=== PATIENT | male | born 1945 | race Caucasian/White ===

== ENCOUNTER 2017-03-22 17:14 | Observation (INO) | payer MEDICARE ==
[~2017-03-22] VITALS: Ht 177.8 cm; Wt 105.5 kg
[2017-03-22] VITALS (7 sets, daily range): BP systolic 123–158; BP diastolic 70–99; PULSE 62–98; RESP 16–20; TEMP 97.7–98; O2SAT 95–96
[~2017-03-22 17:14] MED LIST: AMLO5TAB96 PO; BUPR150T3 PO; COUM4TAB7 PO; DOFE250 PO; ENAL20TA81 PO; KLOR20TA6 PO; METO100T PO; SPIR25 PO; TAMS0.4C67 PO; VASO10TA8 PO
[2017-03-22] MEDS ORDERED: SODIUM CHLOR 0.9% 1000 ML INJ 1,000 ML IV SCH (17:49)
--- NOTE | 2017-03-22 17:59 | PD ---
HPI Chief Complaint: Syncope/Near-Syncope Time Seen by Provider: 17:54 Travel History International Travel<30 days: Yes ([place]) Contact w/Intl Traveler<30days: [place] Traveled to: [place] Traveled to known affect area: No History of Present Illness HPI 71-year-old male that presents to the ED for evaluation of syncope. Patient states that today around 12:30 patient had a syncopal episode. Per patient she denies actually lose consciousness but he felt numbness and tingling on his arms and legs and he almost fell but he was able to catch himself. Per patient she's had an episode of atrial fibrillation the past he was told by his doctor to here has this issue to take a blood thinner. Per patient he was also recently prescribed Bactrim to help with a urinary tract infection which she's had in the past. Per patient he should take Cipro for them but this one became more severe and she called yesterday his doctor who prescribed him Bactrim. He did not get any urine cultures. Per patient his doctor is in [place]. Per patient his symptoms continued and his had to walk and otherwise she felt too dizzy to walk. Per patient he feels very weak. He denies any chest pain. No palpitations. No abdominal pain. Per patient she does have a lot of polyuria and dysuria. He states that this been going for a couple days now. Per patient the dizziness he describes more as a spinning sensation now but initially was more like a passing out Feeling. Patient is not able to ambulate without assistance which is new for him. He states that he follows with Dr. Dhaliwal for his cardiology. He denies any pain at this time. No blurry vision or double vision. No neck pain. No fevers chills or sweats. No sick contacts. Patient did recently when on a cruise to [place]. 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,) High Cholesterol: No Chemotherapy: No Chest Pain: No Congestive Heart Failure: No COPD: No Diabetes: No Endocrine: No GERD: No Genitourinary: No (BLADDER REMOVED) Hiatal Hernia: No Hypertension: Yes Immune Disorder: No Kidney Stones: No Musculoskeletal: No Neurologic: No Psychiatric: No Reproductive: No Respiratory: No Radiation Therapy: No Renal Failure: No Sleep Apnea: Yes Thyroid Disease: No Ulcer: No Past Surgical History Abdominal Surgery: Yes (colon ca, diverticulitis) Cardiac Surgery: Yes (open heart (Aorta resection) 09/2010) Ear Surgery: Yes (left ear) Endocrine Surgery: No Eye Surgery: No Genitourinary Surgery: No Gynecologic Surgery: No Oral Surgery: Yes (tunsila) Thoracic Surgery: No Tonsillectomy: Yes Other Surgery: Yes (bowel resection) Social History Alcohol Use: No Tobacco Use: No Substance Use: No Allergies-Medications (Allergen,Severity, Reaction): Coded Allergies: No Known Allergies (Verified , 03/22/17) Reported Meds & Prescriptions Reported Meds & Active Scripts Active Reported Folic Acid 400 Mcg Tab 400 Mcg PO DAILY Zinc (Zinc Gluconate) 50 Mg Tab 50 Mg PO EVERY OTHER DAY B Complex W/ C 1 Tab Tab 1 Tab PO BID Vitamin D-3 (Cholecalciferol) 2,000 Unit Tab 2,000 Units PO QID C-1000 (Ascorbic Acid) 1,000 Mg Tab 1,000 Mg PO DAILY Coq10 (Coenzyme Q10 (Ubidecarenone)) 200 Mg Cap 200 Mg PO BID Niacin Flush Free (Inositol Niacinate) 590 Mg Cap 590 Mg PO BID Glucosamine (Glucosamine Sulfate) 500 Mg Cap Unknown Dose PO AC DINNER Dhea 25 (Prasterone (DHEA)) 25 Mg Cap 25 Mg PO BID Vitamin B-12 (Cyanocobalamin) 500 Mcg Tab 500 Mcg PO BID Calcium (Calcium Carbonate) 600 Mg Tab 600 Mg PO DAILY Spiriva Respimat Inh (Tiotropium Inh) 2.5 Mcg/Act Aero 2 Puff INH DAILY 2.5 mcg = 1 inhalation Flonase Nasal Rainbow (Fluticasone Nasal Rainbow) 50 Mcg/Act Rainbow 1 Spr EACH NARE DAILY Tikosyn (Dofetilide) 500 Mcg Cap 500 Mcg PO BID For Creatinine Clearance >60 mL/min K-Tab (Potassium Chloride) 20 Meq Tab 20 Meq PO BID Metoprolol Tartrate 100 Mg Tab 100 Mg PO BID Tamsulosin (Tamsulosin HCl) 0.4 Mg Cap 0.4 Mg PO DAILY Wellbutrin Xl 24 HR (Bupropion HCl) 150 Mg Tab 150 Mg PO DAILY Eliquis (Apixaban) 5 Mg Tab 5 Mg PO DAILY Bactrim DS (Sulfamethoxazole-Trimethoprim) 800-160 Mg Tab 1 Tab PO BID Review of Systems Except as stated in HPI: all other systems reviewed are Neg Physical Exam Narrative GENERAL: SKIN: Warm and dry. HEAD: Atraumatic. Normocephalic. EYES: Pupils equal and round 4 mm reactive to light and accommodation. No scleral icterus. No injection or drainage. ENT: No nasal bleeding or discharge. Mucous membranes pink and moist. Tongue is midline. No uvula deviation. NECK: Trachea midline. No JVD. CARDIOVASCULAR: Regular rate and rhythm. No murmurs, S3, S4. RESPIRATORY: No accessory muscle use. Clear to auscultation. Breath sounds equal bilaterally. GASTROINTESTINAL: Abdomen soft, non-tender, nondistended. Hepatic and splenic margins not palpable. MUSCULOSKELETAL: Extremities without clubbing, cyanosis, or edema. No obvious deformities. Full range of motion of the upper and lower extremities bilaterally. 2+ pulses bilaterally. NEUROLOGICAL: Awake and alert. No obvious cranial nerve deficits. Motor grossly within normal limits. Five out of 5 muscle strength in the arms and legs. Normal speech. PSYCHIATRIC: Appropriate mood and affect; insight and judgment normal. Data Data Last Documented VS Vital Signs Date Time Temp Pulse Resp B/P Pulse Ox O2 Delivery O2 Flow Rate FiO2 03/22/17 19:12 74 16 138/85 96 03/22/17 18:12 Room Air 03/22/17 17:15 97.7 Orders Electrocardiogram (03/22/17 17:33) Complete Blood Count With Diff (03/22/17 17:33) Comprehensive Metabolic Panel (03/22/17 17:33) Ckmb (Isoenzyme) Profile (03/22/17 17:33) Troponin I (03/22/17 17:33) Prothrombin Time / Inr (Pt) (03/22/17 17:33) Act Partial Throm Time (Ptt) (03/22/17 17:33) Urinalysis - C+S If Indicated (03/22/17 17:33) Magnesium (Mg) (03/22/17 17:33) Thyroid Stimulating Hormone (03/22/17 17:33) Chest, Single Ap (03/22/17 17:33) Ct Brain W/O Iv Contrast(Rout) (03/22/17 17:33) Iv Access Insert/Monitor (03/22/17 17:33) Ecg Monitoring (03/22/17 17:33) Oximetry (03/22/17 17:33) Orthostatic Vital Signs (03/22/17 17:33) Sodium Chlor 0.9% 1000 Ml Inj (Ns 1000 M (03/22/17 17:49) Admit Order (Ed Use Only) (03/22/17 19:29) Labs Laboratory Tests Test 03/22/17 18:05 White Blood Count 8.4 TH/MM3 Red Blood Count 4.93 MIL/MM3 Hemoglobin 15.4 GM/DL Hematocrit 44.7 % Mean Corpuscular Volume 90.8 FL Mean Corpuscular Hemoglobin 31.2 PG Mean Corpuscular Hemoglobin 34.4 % Concent Red Cell Distribution Width 14.0 % Platelet Count 135 TH/MM3 Mean Platelet Volume 9.7 FL Neutrophils (%) (Auto) 69.5 % Lymphocytes (%) (Auto) 16.8 % Monocytes (%) (Auto) 11.8 % Eosinophils (%) (Auto) 1.4 % Basophils (%) (Auto) 0.5 % Neutrophils # (Auto) 5.9 TH/MM3 Lymphocytes # (Auto) 1.4 TH/MM3 Monocytes # (Auto) 1.0 TH/MM3 Eosinophils # (Auto) 0.1 TH/MM3 Basophils # (Auto) 0.0 TH/MM3 CBC Comment DIFF FINAL Differential Comment Prothrombin Time 11.9 SEC Prothromb Time International 1.1 RATIO Ratio Activated Partial 29.3 SEC Thromboplast Time Urine Color YELLOW Urine Turbidity CLEAR Urine pH 5.0 Urine Specific [place] 1.017 Urine Protein NEG mg/dL Urine Glucose (UA) NEG mg/dL Urine Ketones NEG mg/dL Urine Occult Blood NEG Urine Nitrite NEG Urine Bilirubin NEG Urine Urobilinogen LESS THAN 2.0 MG/DL Urine Leukocyte Esterase NEG Urine RBC LESS THAN 1 /hpf Urine WBC 1 /hpf Urine Mucus FEW /lpf Microscopic Urinalysis Comment CULT NOT INDICATED Sodium Level 138 MEQ/L Potassium Level 4.2 MEQ/L Chloride Level 105 MEQ/L Carbon Dioxide Level 25.2 MEQ/L Anion Gap 8 MEQ/L Blood Urea Nitrogen 21 MG/DL Creatinine 1.01 MG/DL Estimat Glomerular Filtration 73 ML/MIN Rate Random Glucose 81 MG/DL Calcium Level 8.9 MG/DL Magnesium Level 2.0 MG/DL Total Bilirubin 0.8 MG/DL Aspartate Amino Transf 19 U/L (AST/SGOT) Alanine Aminotransferase 33 U/L (ALT/SGPT) Alkaline Phosphatase 107 U/L Total Creatine Kinase 94 U/L Troponin I LESS THAN 0.02 NG/ML Total Protein 7.2 GM/DL Albumin 3.8 GM/DL Thyroid Stimulating Hormone 1.870 uIU/ML 3rd Gen [facility] Medical Decision Making Medical Screen Exam Complete: Yes Emergency Medical Condition: Yes Medical Record Reviewed: Yes Interpretation(s) CBC & BMP Diagram 03/22/17 18:[address] 03/22/173 Signed Impressions: Service Date/Time: Wednesday, March 22, 2017 18:24 - CONCLUSION: Normal examination for a patient of this age. Sergio Mike MD Chest X-Ray 03/22/171732 Signed Impressions: Service Date/Time: Wednesday, March 22, 2017 17:52 - CONCLUSION: 1. No acute findings. Median sternotomy. Tortuous aorta. Sergio Mike MD EKG shows atrial fibrillation but no RVR. no sign of ischemia or arrhythmia read by me and attending. troponin and CKMB negative LFTS WNL UA negative Differential Diagnosis Syncope versus presyncope versus UTI versus orthostatic hypotension versus CVA versus ACS versus electrolyte abnormality versus sepsis Narrative Course 71-year-old male that presents to the ED for evaluation of syncope. Patient was properly examined and was found to have signs and symptoms which appear to be consistent with syncope. Unclear etiology. Patient does have risk factors for multiple disease. I do recommend labs and imaging. Patient was given IV fluids. Labs and imaging showed no sign of acute disease. For the most part look good. Orthostatics were within normal limits. Patient still symptomatic. Because of this and the recommend admission for syncope workup. Patient is in agreement with this plan. Case was discussed with Dr. Aleman who agrees to admission. Procedures EKG Prior to Arrival: No Diagnosis Primary Impression: Syncope Qualified Code: R55 - Syncope, unspecified syncope type Admitting Information Admitting Physician Requests: Rafa Sosa March 22, 2017 17:59
[2017-03-22] MEDS ORDERED: BUPR150XL PO (18:04)
[2017-03-22] MEDS ORDERED: TAMS0.4C4 PO (18:04)
[2017-03-22] MEDS ORDERED: APIX5TAB PO (18:04)
[2017-03-22] MEDS ORDERED: BACT800T5 PO (18:04)
[2017-03-22] MEDS ORDERED: TIOT12.9 INH (18:07)
[2017-03-22] MEDS ORDERED: METO100T PO (18:07)
[2017-03-22] MEDS ORDERED: DOFE500 PO (18:07)
[2017-03-22] MEDS ORDERED: FLUT1SPR5 EACH NARE (18:07)
[2017-03-22] MEDS ORDERED: POTA1TAB4 PO (18:07)
[2017-03-22] MEDS ORDERED: [UNRECOGNIZED DRUG - CODE] PO (18:16)
[2017-03-22] MEDS ORDERED: B CO1TAB2 PO (18:16)
[2017-03-22] MEDS ORDERED: [UNRECOGNIZED DRUG - CODE] PO (18:16)
[2017-03-22] MEDS ORDERED: PRAS1CAP PO (18:16)
[2017-03-22] MEDS ORDERED: CALC600T25 PO (18:16)
[2017-03-22] MEDS ORDERED: VITA500T4 PO (18:16)
[2017-03-22] MEDS ORDERED: CHOL1TAB42 PO (18:16)
[2017-03-22] MEDS ORDERED: CHEL50TA PO (18:16)
[2017-03-22] MEDS ORDERED: COQ1200C PO (18:16)
[2017-03-22] MEDS ORDERED: GLUC500C5 PO (18:16)
[2017-03-22] MEDS ORDERED: FOLI400T PO (18:16)
[2017-03-22 18:28] LABS: AUTOMATED NEUTROPHIL # 5.9 TH/MM3 (1.8-7.7); BASOPHIL % 0.5 % (0.0-2.0); EOSINOPHIL # 0.1 TH/MM3 (0-0.4); EOSINOPHIL % 1.4 % (0.0-4.0); HEMATOCRIT 44.7 % (39.0-51.0); HEMO FLAGS DIFF FINAL; LYMPH % 16.8 % (9.0-44.0); LYMPHOCYTE # 1.4 TH/MM3 (1.0-4.8); MEAN CELL VOLUME 90.8 FL (80.0-100.0); MEAN CORPUSCULAR HEMOGLOBIN 31.2 PG (27.0-34.0); MEAN CORPUSCULAR HGB CONC 34.4 % (32.0-36.0); MONO % 11.8 % (0.0-8.0); NEUT % 69.5 % (16.0-70.0); PLATELET COUNT 135 TH/MM3 (150-450); RED BLOOD COUNT 4.93 MIL/MM3 (4.50-5.90); WHITE BLOOD COUNT 8.4 TH/MM3 (4.0-11.0)
[2017-03-22 18:39] LABS: APTT (PATIENT) 29.3 SEC (24.3-30.1); INTERNATIONAL NORMALIZED RATIO 1.1 RATIO; PROTHROMBIN TIME - PATIENT 11.9 SEC (9.8-11.6)
--- NOTE | 2017-03-22 18:52 | RADRPT ---
EXAM DATE/TIME: 03/22/2017 18:24 [facility] COMPARISON: No previous studies available for comparison. INDICATIONS : Trauma; fall. RADIATION DOSE: 56.35 CTDIvol (mGy) MEDICAL HISTORY : Carcinoma, colon. Aneurysm, abdominal. SURGICAL HISTORY : None. ENCOUNTER: Initial ACUITY: 1 day PAIN SCALE: 3/10 LOCATION: cranial TECHNIQUE: Multiple contiguous axial images were obtained of the head. Using automated exposure control and adj ustment of the mA and/or kV according to patient size, radiation dose was kept as low as reasonably a chievable to obtain optimal diagnostic quality images. FINDINGS: CEREBRUM: The ventricles are normal for age. No evidence of midline shift, mass lesion, hemorrhage or acute in farction. No extra-axial fluid collections are seen. POSTERIOR FOSSA: The cerebellum and brainstem are intact. The 4th ventricle is midline. The cerebellopontine angle i s unremarkable. EXTRACRANIAL: The visualized portion of the orbits is intact. SKULL: The calvaria is intact. No evidence of skull fracture. CONCLUSION: Normal examination for a patient of this age. Sergio Mike MD on March 22, 2017 at 18:48 Board Certified Radiologist. This report was verified electronically.
[2017-03-22 18:57] LABS: ANION GAP 8 MEQ/L (5-15); AST (GOT) 19 U/L (15-37); BICARBONATE 25.2 MEQ/L (21.0-32.0); BLOOD UREA NITROGEN 21 MG/DL (7-18); CHLORIDE 105 MEQ/L (98-107); GLOMERULAR FILTRATION RATE 73 ML/MIN (>89); POTASSIUM 4.2 MEQ/L (3.5-5.1); SODIUM (NA) 138 MEQ/L (136-145)
[2017-03-22 19:00] LABS: BLOOD, URINE NEG (NEG); COMMENT (UR) CULT NOT INDICATED; CULTURE IF INDICATED CULT NOT INDICATED; GLUCOSE,URINE NEG (NEG); KETONE, URINE NEG (NEG); MUCUS URINE FEW /lpf (OCC); NITRITE,URINE NEG (NEG); URINE COLOR YELLOW (YELLW/STRAW)
--- NOTE | 2017-03-22 19:00 | RADRPT ---
EXAM DATE/TIME: 03/22/2017 17:52 [facility] COMPARISON: No previous studies available for comparison. INDICATIONS : Syncopal episode and dizziness. MEDICAL HISTORY : None. SURGICAL HISTORY : Cardiac ablations. ENCOUNTER: Initial ACUITY: 1 day PAIN SCORE: 0/10 LOCATION: chest FINDINGS: A single view of the chest demonstrates the lungs to be symmetrically aerated without evidence of mas s, infiltrate or effusion. Postoperative median sternotomy. Tortuous aorta. CONCLUSION: 1. No acute findings. Median sternotomy. Tortuous aorta. Sergio Mike MD on March 22, 2017 at 18:57 Board Certified Radiologist. This report was verified electronically.
[2017-03-22 19:07] LABS: ALKALINE PHOSPHATASE 107 U/L (45-117); ALT (GPT) 33 U/L (12-78); CREATINE KINASE 94 U/L (39-308); TOTAL BILIRUBIN ADULT 0.8 MG/DL (0.2-1.0)
[2017-03-22] MEDS ORDERED: MORPHINE SULFATE 4 MG/ML INJ IV PRN (19:45)
[2017-03-22] MEDS ORDERED: SODIUM CHLORIDE 0.9% FLUSH 10 ML FLUSH IV FLUSH PRN (19:45)
[2017-03-22] MEDS ORDERED: ONDANSETRON HCL 4 MG/2 ML VIAL IVP PRN (19:45)
[2017-03-22] MEDS ORDERED: ACETAMINOPHEN/HYDROcodone 325 MG/5 MG TAB PO PRN (19:45)
[2017-03-22] MEDS ORDERED: BISACODYL 10 MG SUPP RECTAL PRN (19:45)
[2017-03-22] MEDS ORDERED: ACETAMINOPHEN 325 MG TAB PO PRN (19:45)
--- NOTE | 2017-03-22 19:53 | HHI.HP ---
[facility] Service [facility] Primary Care Physician Juvencio Akins MD Admission Diagnosis syncope Diagnoses: (1) Syncope Diagnosis: Principal (2) A-fib Diagnosis: Principal (3) Thrombocytopenia Diagnosis: Principal (4) COPD (chronic obstructive pulmonary disease) Diagnosis: Principal (5) HTN (hypertension) Diagnosis: Principal Travel History International Travel<30 Days: Yes ([place]) Contact w/Intl Traveler <30 Da: [place] Country Traveled to: [place] Traveled to Known Affected Are: No History of Present Illness This is a 71-year-old male with a PMH of Colon CA, A. fib on Eliquis, COPD and HTN who presented to the ER after syncopal event earlier today. Reports sudden onset of dizziness and lightheadedness earlier today with numbness and tingling of both arms and legs. Denies fever, chills, nausea, vomiting or diarrhea. Notes recently diagnosed w/ UTI and currently on antibiotics-initially started on Cipro and then switched to Bactrim. On arrival, BP 158/99, HR 98, O2 sat 96 % on RA, Afebrile. CBC unremarkable except for platelets 135, previously 119 on 07/27/11. Chemistry essentially unremarkable except for GFR 73. Troponin negative. INR 1.1. UA negative. CT Head normal. CXR with no acute findings. Patient follows with Dr. Akins w/ Cardiology as outpatient. Review of Systems Except as stated in HPI: all other systems reviewed are Neg ROS: 14 point review of systems otherwise negative. Past Family Social History Past Medical History PMH: Colon CA, A. fib on Eliquis, COPD and HTN Past Surgical History PAST SURGICAL HISTORY: Aortic Aneurysm Repair, Tonsillectomy, Bowel Resection Allergies: Coded Allergies: No Known Allergies (Verified , 03/22/17) Family History PAST FAMILY HISTORY: Reviewed. No h/o DM or CAD Social History PAST SOCIAL HISTORY: Negative for alcohol, tobacco or drugs. Physical Exam Vital Signs Vital Signs Date Time Temp Pulse Resp B/P Pulse Ox O2 Delivery O2 Flow Rate FiO2 03/22/17 19:12 74 16 138/85 96 5/6/17 18:14 78 138/85 77 132/78 138/83 03/22/17 18:12 97 Room Air 03/22/17 18:12 85 16 138/98 03/22/17 17:15 97.7 98 20 158/99 96 Room Air Physical Exam PE: GENERAL: Pleasant elderly male in no acute distress. HEENT: PERRLA, EOMI. No scleral icterus or conjunctival pallor. No lid lag or facial droop. CARDIOVASCULAR: Irregularly irregular, in A. fib. No obvious murmurs to auscultation. No chest tenderness to palpation. RESPIRATORY: No obvious rhonchi or wheezing. Clear to auscultation. Breath sounds equal bilaterally. GASTROINTESTINAL: Abdomen soft, non-tender, nondistended. BS normal. MUSCULOSKELETAL: Extremities without clubbing, cyanosis, or edema. No obvious deformities. NEUROLOGICAL: Awake, alert and oriented x4. No focal neurologic deficits. Moving both upper and lower extremities spontaneously. Laboratory Laboratory Tests Test 03/22/17 18:05 White Blood Count 8.4 Red Blood Count 4.93 Hemoglobin 15.4 Hematocrit 44.7 Mean Corpuscular Volume 90.8 Mean Corpuscular Hemoglobin 31.2 Mean Corpuscular Hemoglobin 34.4 Concent Red Cell Distribution Width 14.0 Platelet Count 135 Mean Platelet Volume 9.7 Neutrophils (%) (Auto) 69.5 Lymphocytes (%) (Auto) 16.8 Monocytes (%) (Auto) 11.8 Eosinophils (%) (Auto) 1.4 Basophils (%) (Auto) 0.5 Neutrophils # (Auto) 5.9 Lymphocytes # (Auto) 1.4 Monocytes # (Auto) 1.0 Eosinophils # (Auto) 0.1 Basophils # (Auto) 0.0 CBC Comment DIFF FINAL Differential Comment Prothrombin Time 11.9 Prothromb Time International 1.1 Ratio Activated Partial 29.3 Thromboplast Time Urine Color YELLOW Urine Turbidity CLEAR Urine pH 5.0 Urine Specific [place] 1.017 Urine Protein NEG Urine Glucose (UA) NEG Urine Ketones NEG Urine Occult Blood NEG Urine Nitrite NEG Urine Bilirubin NEG Urine Urobilinogen LESS THAN 2.0 Urine Leukocyte Esterase NEG Urine RBC LESS THAN 1 Urine WBC 1 Urine Mucus FEW Microscopic Urinalysis Comment CULT NOT INDICATED Sodium Level 138 Potassium Level 4.2 Chloride Level 105 Carbon Dioxide Level 25.2 Anion Gap 8 Blood Urea Nitrogen 21 Creatinine 1.01 Estimat Glomerular Filtration 73 Rate Random Glucose 81 Calcium Level 8.9 Magnesium Level 2.0 Total Bilirubin 0.8 Aspartate Amino Transf 19 (AST/SGOT) Alanine Aminotransferase 33 (ALT/SGPT) Alkaline Phosphatase 107 Total Creatine Kinase 94 Troponin I LESS THAN 0.02 Total Protein 7.2 Albumin 3.8 Thyroid Stimulating Hormone 1.870 3rd Gen Result Diagram: 03/22/17180403/22/171804 Assessment and Plan Problem List: (1) Syncope ICD Code: R55 Status: Acute (2) A-fib ICD Code: I48.91 Status: Acute (3) Thrombocytopenia ICD Code: D69.6 Status: Acute (4) COPD (chronic obstructive pulmonary disease) ICD Code: J44.9 Status: Acute (5) HTN (hypertension) ICD Code: I10 Status: Acute Assessment and Plan A/P: 1. Syncope: c/o sudden onset dizziness/lightheadedness followed by syncope. CT Head w/ no acute findings, CXR negative, images reviewed by me. Initial trop negative, EKG w/ no acute ischemia. Admit for Observation, telemetry, check serial cardiac enzymes to eval for underlying ischemia, check Echo, resume home medications, IVF for hydration. Consult Dr. Akins w/ whom he follows as an outpatient. 2. A-fib: Chronic. Controlled. Resume home Eliquis, Tikosyn and Metoprolol. 3. Thrombocytopenia: Chronic. Platelets 135, previously 119 on 07/27/11. No active bleeding, will monitor, repeat labs in am. 4. COPD: Chronic Respiratory Failure. Stable. Resume home Spiriva/DuoNeb 5. DVT Prophylaxis: On Eliquis 6. Social work for d/c planning as needed. 7. Case discussed w/ ER physician at length Problem Qualifiers (1) Syncope: Qualified Code: R55 - Syncope, unspecified syncope type Nakita Aleman MD March 22, 2017 19:53
[2017-03-22] MEDS ORDERED: DOFETILIDE 500 MCG CAP PO SCH (21:00)
[2017-03-22] MEDS: DOFETILIDE 250 MCG CAP PO SCH (21:32)
[2017-03-22] MEDS: METOPROLOL TARTRATE 100 MG TAB PO SCH (21:33)
[2017-03-22] MEDS: TIOTROPIUM BROMIDE 18 MCG INH INH SCH (21:33)
[2017-03-22] MEDS: SODIUM CHLORIDE 0.9% FLUSH 10 ML FLUSH IV FLUSH SCH (21:33)
--- NOTE | 2017-03-22 21:37 | EKG ---
Date Performed: 03/22/2017 Time Performed: 17:59:10 PTAGE: 71 years EKG: ATRIAL FIBRILLATION POSSIBLE ANTERIOR MYOCARDIAL INFARCTION INFERIOR MYOCARDIAL INFARCTION ABNORMAL ECG NO PREVIOUS TRACING DOCTOR: Juvencio Akins Interpretating Date/Time 03/22/2017 21:35:34
[2017-03-22] MEDS: SODIUM CHLOR 0.9% 1000 ML INJ 1,000 ML IV SCH (21:40)
[2017-03-23] VITALS (13 sets, daily range): BP systolic 121–138; BP diastolic 69–91; PULSE 52–84; RESP 14–20; TEMP 97.8–98.8; O2SAT 95–98
[2017-03-23 06:04] LABS: ANION GAP 8 MEQ/L (5-15); AST (GOT) 14 U/L (15-37); BICARBONATE 25.5 MEQ/L (21.0-32.0); BLOOD UREA NITROGEN 16 MG/DL (7-18); CHLORIDE 107 MEQ/L (98-107); GLOMERULAR FILTRATION RATE 97 ML/MIN (>89); POTASSIUM 3.6 MEQ/L (3.5-5.1); SODIUM (NA) 140 MEQ/L (136-145)
[2017-03-23 06:08] LABS: ALKALINE PHOSPHATASE 69 U/L (45-117); ALT (GPT) 26 U/L (12-78); TOTAL BILIRUBIN ADULT 1.3 MG/DL (0.2-1.0)
[2017-03-23 06:11] LABS: AUTOMATED NEUTROPHIL # 4.5 TH/MM3 (1.8-7.7); BASOPHIL % 0.6 % (0.0-2.0); EOSINOPHIL # 0.1 TH/MM3 (0-0.4); EOSINOPHIL % 1.9 % (0.0-4.0); HEMATOCRIT 40.9 % (39.0-51.0); HEMO FLAGS DIFF FINAL; LYMPH % 19.8 % (9.0-44.0); LYMPHOCYTE # 1.4 TH/MM3 (1.0-4.8); MEAN CELL VOLUME 90.3 FL (80.0-100.0); MEAN CORPUSCULAR HEMOGLOBIN 30.6 PG (27.0-34.0); MEAN CORPUSCULAR HGB CONC 33.9 % (32.0-36.0); MONO % 12.5 % (0.0-8.0); NEUT % 65.2 % (16.0-70.0); PLATELET COUNT 107 TH/MM3 (150-450); RED BLOOD COUNT 4.53 MIL/MM3 (4.50-5.90); RED CELL DISTRIBUTION WIDTH 13.8 % (11.6-17.2); WHITE BLOOD COUNT 6.9 TH/MM3 (4.0-11.0)
--- NOTE | 2017-03-23 08:23 | HHI.PR ---
Subjective Remarks Follow-up for syncope, atrial fibrillation. Patient is currently doing well. Denies any chest pain, shortness of breath, fever or chills. He is still feels somewhat dizzy, lightheadedness. Objective Vitals Vital Signs Date Time Temp Pulse Resp B/P Pulse Ox O2 Delivery O2 Flow Rate FiO2 03/23/17 05:35 52 03/23/17 03:54 98.1 53 20 123/73 97 03/22/17 23:39 98.0 62 19 125/70 95 03/22/17 21:12 98.0 69 20 123/72 96 03/22/17 20:33 75 16 136/81 96 03/22/17 19:12 74 16 138/85 96 03/22/17 18:14 78 138/85 77 132/78 138/83 03/22/17 18:12 97 Room Air 03/22/17 18:12 85 16 138/98 03/22/17 17:15 97.7 98 20 158/99 96 Room Air Result Diagram: 03/23/17 0415 03/23/17 0415 Imaging Last Impressions Head Magnetic Resonance Angiography 03/23/17 0000 Signed Impressions: Service Date/Time: Thursday, March 23, 2017 13:20 - CONCLUSION: Unremarkable exam. Juan Salas MD Carotid Artery Ultrasound 03/23/17 Signed Impressions: Service Date/Time: Thursday, March 23, 2017 10:07 - CONCLUSION: Minimal plaquing with no evidence of stenosis. Juan Salas MD Brain MRI 03/23/17 Signed Impressions: Service Date/Time: Thursday, March 23, 2017 13:20 - CONCLUSION: 1. No acute hemorrhage, mass or infarction. 2. Mild atrophy and chronic small vessel ischemic changes. Juan Salas MD Head CT 03/22/171732 Signed Impressions: Service Date/Time: Wednesday, March 22, 2017 18:24 - CONCLUSION: Normal examination for a patient of this age. Sergio Mike MD Chest X-Ray 03/22/171732 Signed Impressions: Service Date/Time: Wednesday, March 22, 2017 17:52 - CONCLUSION: 1. No acute findings. Median sternotomy. Tortuous aorta. Sergio Mike MD Objective Remarks GENERAL: Alert, oriented 3, NAD. SKIN: Warm and dry. HEAD: Normocephalic. EYES: No scleral icterus. No injection or drainage. NECK: Supple, trachea midline. No JVD or lymphadenopathy. CARDIOVASCULAR: Regular rate and rhythm without murmurs, gallops, or rubs. RESPIRATORY: Breath sounds equal bilaterally. No accessory muscle use. GASTROINTESTINAL: Abdomen soft, non-tender, nondistended. MUSCULOSKELETAL: No cyanosis, or edema. BACK: Nontender without obvious deformity. No CVA tenderness. Procedures None A/P Problem List: (1) Syncope ICD Code: R55 Status: Acute (2) A-fib ICD Code: I48.91 Status: Acute (3) Thrombocytopenia ICD Code: D69.6 Status: Acute (4) COPD (chronic obstructive pulmonary disease) ICD Code: J44.9 Status: Acute (5) HTN (hypertension) ICD Code: I10 Status: Acute Assessment and Plan This is a 71-year-old male with a PMH of Colon CA, A. fib on Eliquis, COPD and HTN who presented to the ER after syncopal event on 03/22/2017. Syncope - c/o sudden onset dizziness/lightheadedness followed by syncope. - CT Head w/ no acute findings, CXR negative. Initial trop negative, EKG w/ no acute ischemia - Dr. Akins evaluated patient and recommended MRI studies of the brain as well as a neurology consult. - Neurology recommended changing Wellbutrin to some other antidepressant if necessary. A-fib: Chronic. Controlled. - Resume Tikosyn - Continue metoprolol. May need to be reduced. - Continue apixaban COPD - Chronic Respiratory Failure. Stable. Resume home Spiriva/DuoNeb Full code. Apixaban. Problem Qualifiers (1) Syncope: Qualified Code: R55 - Syncope, unspecified syncope type Fredy Boateng DO March 23, 2017 8:23 am
[2017-03-23] MEDS: SODIUM CHLORIDE 0.9% FLUSH 10 ML FLUSH IV FLUSH SCH ×2 (08:35→22:26)
[2017-03-23] MEDS: METOPROLOL TARTRATE 100 MG TAB PO SCH ×2 (08:39→22:25)
[2017-03-23] MEDS: TAMSULOSIN HCL 0.4 MG CAP PO SCH (08:39)
[2017-03-23] MEDS: DOFETILIDE 250 MCG CAP PO SCH ×2 (08:40→22:36)
[2017-03-23] MEDS: TIOTROPIUM BROMIDE 18 MCG INH INH SCH (08:40)
[2017-03-23] MEDS: SODIUM CHLOR 0.9% 1000 ML INJ 1,000 ML IV SCH ×2 (08:42→22:25)
[2017-03-23] MEDS ORDERED: APIXABAN 5 MG TABLET PO SCH (09:00)
[2017-03-23] MEDS ORDERED: buPROPion HCL 150 MG SUSTAINED RELEASE TAB PO SCH (09:00)
--- NOTE | 2017-03-23 12:29 | RADRPT ---
EXAM DATE/TIME: 03/23/2017 10:07 [facility] COMPARISON: US CAROTID ARTERIES, April 17, 2011, 17:39. INDICATIONS : Syncope. MEDICAL HISTORY : Carcinoma, colon. Hypertension. Upper aorta aneurysm. SURGICAL HISTORY : Tonsillectomy. Bladder removed. Bowel resection. Aorta resection. ENCOUNTER: Initial ACUITY: 1 day PAIN SCORE: 0/10 LOCATION: Bilateral neck PEAK SYSTOLIC VELOCITIES (cm/sec): ICA/CCA RATIO: Right: 0.7 Left: 0.6 ICA: Right: 71 Left: 62 CCA: Right: 102 Left: 97 ECA: Right: 91 Left: 80 VERTEBRAL: Right: 48 antegrade Left: 34 antegrade Elevated flow velocities and ICA/CCA ratios have been found to correlate with increased degrees of vessel stenosis, calculated as percentage of diameter relative to a normal segment of distal ICA/CCA FINDINGS: RIGHT CAROTID: No significant stenosis is visualized. There is minimal plaquing. The waveforms are within normal li mits. LEFT CAROTID: No significant stenosis is visualized. There is minimal plaquing. The waveforms are within normal mckeon its. VERTEBRAL ARTERIES: Antegrade flow is seen in both vertebral arteries. MISCELLANEOUS: None. CONCLUSION: Minimal plaquing with no evidence of stenosis. Juan Salas MD on March 23, 2017 at 12:25 Board Certified Radiologist. This report was verified electronically.
--- NOTE | 2017-03-23 13:40 | MB ---
cc: BRANDON DAMON M.D. DATE OF CONSULTATION: 03/23/2017 REASON FOR CONSULTATION: Syncopal episode. HISTORY OF PRESENT ILLNESS: Mr. Coombs is a 71-year-old gentleman with history of aortic aneurysm repair, high blood pressure, atrial fibrillation, obesity. The patient has previous ablation around 2011. Subsequently the patient was put on Tikosyn. He tolerated it very well the medication for the past three years. The gentleman has a recent cardioversion in [place], not taking properly his anticoagulation. He just started Eliquis when he has a dizzy episode on yesterday afternoon. He was admitted through the emergency room due to syncopal episode and dizziness. He referred his heart rate was in the 90s during hospitalization. The chart was reviewed. The patient was evaluated. ALLERGIES: NONE. SOCIAL HISTORY: Negative for smoking. FAMILY HISTORY: Noncontributory to his current medical condition. MEDICATIONS: The gentleman is on: 1. Tamsulosin 0.4 milligrams a day. 2. Tikosyn 500 micrograms twice a day. 3. Eliquis 5 milligrams twice a day. 4. Wellbutrin. 5. Spiriva. 6. Metoprolol 100 milligrams twice a day. 7. Coenzyme Q. 8. Potassium. 9. Multivitamins. REVIEW OF SYSTEMS The patient referred no chest pain, referred dizziness when removed from the bed but no syncope at this point. PHYSICAL EXAMINATION: Fully oriented. VITAL SIGNS: Blood pressure is 121/73, pulse on the monitor currently is 58 to 62, respiratory rate 18. Lungs: Ventilated. Cardiovascular: S1-S2 regular. No gallop. Abdomen: Obese. No masses. Extremities: No edema. Electrocardiogram during hospitalization, this is apparently AV dissociation, not atrial fibrillation. Telemetry currently shows sinus rhythm with a long first-degree AV block. QT is in the 400s, 444, AA 60. LABORATORY DATA: Hemoglobin is 13.90, white blood cells 6.9, potassium is 3.6, creatinine 0.79, troponin less than 0.02, INR 1.1. Head CT scan negative for acute event. ASSESSMENT AND RECOMMENDATIONS Mr. Coombs basically has dizziness. When he moves in the bed he feels like he is going to pass out. At that time heart rate was in the 60s. There is no change in heart rate. There was no AV block. I have asked him to close his eyes. It may be a ____ kind of issue or the gentleman may be experiencing a TIA, or ischemic episode. Remember he was not taking the Tikosyn properly. He was basically taking it on demand. He is supposed to be on anticoagulation but not following it properly the directions. Also, he is on metoprolol 100 milligrams a day, that may lead to bradycardiac. The gentleman is concerned about his heart rate which is 90 beats per minute sometimes. I do not think this is an issue. His blood pressure is adequate on the metoprolol. At this point I am going to monitor him. I discussed the case with the radiologist. I am going to order brain MRI and MRA, and also neurology consult will be necessary. The patient is going to be transferred to CICU. If necessary before discharge home, loop recorder will be inserted. Brandon Damon MD /MAHESH /1:13 PM /1:25 PM
--- NOTE | 2017-03-23 14:01 | RADRPT ---
EXAM DATE/TIME: 03/23/2017 13:20 [facility] COMPARISON: CT BRAIN W/O CONTRAST, March 22, 2017, 18:24. INDICATIONS : Dizziness. MEDICAL HISTORY : Carcinoma, colon. Hypertension. SURGICAL HISTORY : Colon resection. CABG Abdominal aortic aneurysm repair. ENCOUNTER: Initial ACUITY: 1 day PAIN SCORE: 0/10 LOCATION: cranial TECHNIQUE: Multiplanar, multisequence MRI of the brain was performed without contrast. FINDINGS: CEREBRUM: The ventricles are normal for age. No evidence of midline shift, mass lesion, hemorrhage or acute in farction. No extraaxial fluid collections are seen. The pituitary gland and suprasellar cistern are normal in configuration. WHITE MATTER: On the flair weighted images there is small scattered punctate areas of increased signal noted. POSTERIOR FOSSA: The cerebellum and brainstem are intact. The 4th ventricle is midline. The cerebellopontine angle is unremarkable. The cerebellar tonsils are normal in position. DIFFUSION IMAGING: No focal areas of restricted diffusion are seen. No evidence of acute infarction. EXTRACRANIAL: The visualized portions of the orbits and paranasal sinuses are unremarkable. CONCLUSION: 1. No acute hemorrhage, mass or infarction. 2. Mild atrophy and chronic small vessel ischemic changes. Juan Salas MD on March 23, 2017 at 13:57 Board Certified Radiologist. This report was verified electronically.
--- NOTE | 2017-03-23 14:02 | RADRPT ---
EXAM DATE/TIME: 03/23/2017 13:20 [facility] COMPARISON: No previous studies available for comparison. INDICATIONS : Dizziness. MEDICAL HISTORY : Carcinoma, colon. Hypertension. SURGICAL HISTORY : Abdominal aortic aneurysm repair. CABG Colon resection. ENCOUNTER: Initial ACUITY: 1 day PAIN SCORE: 0/10 LOCATION: cranial Please note a normal MRA of the brain does not entirely exclude the possibility of a small aneurysm, nor the possibility of distal intracranial vessel disease. TECHNIQUE: 3D time of flight MRA was performed. Source images, multiplanar STS MIP, and 3D volume MIP reconstru ctions were reviewed. FINDINGS: There is excellent visualization of the major intracranial arteries out to the second-order branch ve ssels. There is no evidence for aneurysm, vessel truncation or stenosis, and no evidence for vascula r malformation. CONCLUSION: Unremarkable exam. Juan Salas MD on March 23, 2017 at 13:59 Board Certified Radiologist. This report was verified electronically.
--- NOTE | 2017-03-23 17:19 | MB ---
cc: SARAH SPAIN DATE OF CONSULTATION 03/23/17 A 71-year-old right-handed man with a history of hypertension, asthma, a-fib, colon cancer 10 years ago without mets. He has had many episodes over the last 6 months or so where he has felt lightheaded, where he feels like he might pass out but never actually has. He just feels generally weak, like his legs may buckle. He was walking in the mall, the door open and he got through the door, felt very lightheaded. He actually fell but did not lose consciousness. As far as I can tell he was just started on Eliquis the day before admission and he is supposed to take one twice a day. He had an episode in the hospital where the nurse put his head of his bed up quickly and he felt a little dizzy and lightheaded at that time. No true vertigo. SOCIAL HISTORY Not a smoker. He occasionally has a drink. He lives with his . FAMILY HISTORY Positive for cancer. Negative for seizure or stroke. Positive CAD. Negative for seizure, stroke. REVIEW OF SYSTEMS Denies any diabetes, hypercholesterolemia, CABG, stent, renal, hepatic disease, thyroid disease, lupus, ulcer, seizure or stroke. He does not feel dizzy if he rolls over in bed. He notices that his hands fall asleep sometimes at night. He did not actually lose consciousness, felt some tingling in the arms and legs, was able to catch himself. He has had palpitations in the past. Recent UTI. He actually does not have a spinning sensation of vertigo, he tells me. No sudden hearing loss or ringing in the ears. PAST MEDICAL HISTORY As above. Also, aortic aneurysm, bladder removed evidently, some sort of cardiac surgery in 2009. MEDICATIONS Medications at home: 1. Folic acid. 2. Zinc. 3. Multivitamins. 4. Spiriva. 5. Flonase. 6. Potassium. 7. Metoprolol. 8. Tamsulosin. 9. Wellbutrin XR 24 milligrams. 10. Eliquis 5 should be twice a day. 11. Bactrim. PHYSICAL EXAMINATION VITAL SIGNS: On exam afebrile, 79, 18, 132/91. NECK: There are no carotid bruits. No vertebral bruits either. HEART: Heart was regular. I did not detect a murmur. NEURO: Pupils are equally. Visual reese are full. Extraocular movements are intact without nystagmus. Face symmetric, normal sensation. Tongue was midline. There was no drift. He had normal strength in upper lower extremities bilaterally. DTRs are trace throughout. Toes are downgoing bilaterally. Pinprick and vibratory sense are intact throughout. He is not ataxic on [id number], [id number]. He had normal gait with normal Tandem, negative Romberg. Hallpike maneuver was negative bilaterally. There was no nystagmus. LABORATORY DATA MRI of the brain was normal. MRA [place] was normal. Mastoids look fine. CBC was normal. Basic metabolic profile was normal. Troponin normal. Albumin 3.3, TSH normal. UA is negative. He has what appears to be a first-degree heart block on his EKG. Coags are normal. A carotid ultrasound was negative. Vertebrobasilar system looked fine on the MRA of the [place]. IMPRESSION Sounds like he is having presyncopal episodes in the past. I do not see anything here that would indicate some vertebrobasilar insufficiency. He is on Wellbutrin SR and that can cause seizures and I would recommend stopping that and changing to a different antidepressant. His Eliquis, he should be on 5 milligrams twice a day. I am not sure why he is only on once a day and I have asked the med team to go to twice a day unless there is some contraindication for that and notify him of that. We will check some standing blood pressures here but overall I thought he looked intact neurologically and his symptoms sound primarily to be lightheadedness and near-syncope. Will check standing blood pressures here and have also instructed his to check some at home. If his standing blood pressures here are fine he could be discharged neurologically off of the Wellbutrin and possibly on the Eliquis b.i.d. as discussed above MD JAILENE Bridges/JOSE DAVID /4:52 PM /5:05 PM
[2017-03-24] VITALS (17 sets, daily range): BP systolic 124–128; BP diastolic 75–78; PULSE 49–67; RESP 12–18; TEMP 97.3–98; O2SAT 96–97
[2017-03-24] MEDS: SODIUM CHLOR 0.9% 1000 ML INJ 1,000 ML IV SCH ×2 (01:41→09:33)
--- NOTE | 2017-03-24 08:50 | HHI.PR ---
Objective Vital Signs Date Time Temp Pulse Resp B/P Pulse Ox O2 Delivery O2 Flow Rate FiO2 03/24/17 07:00 98.0 53 16 124/75 97 03/24/17 06:18 52 03/24/17 05:21 67 03/24/17 04:14 97.3 50 12 128/78 96 03/24/17 04:13 53 03/24/17 03:15 66 03/24/17 02:06 58 03/24/17 01:00 49 03/24/17 00:01 97.8 55 12 126/77 97 03/24/17 00:00 56 03/23/17 23:20 58 03/23/17 23:20 58 03/23/17 22:42 56 03/23/17 22:42 56 03/23/17 21:30 68 03/23/17 21:30 68 03/23/17 20:11 98.5 59 14 123/70 95 03/23/17 20:00 73 03/23/17 18:00 56 03/23/17 18:00 128/79 138/69 03/23/17 17:00 58 03/23/17 16:00 97.8 79 18 132/91 98 03/23/17 16:00 84 03/23/17 15:00 56 I/O 03/23/17 03/23/17 03/23/17 03/24/17 03/24/17 03/24/17 07:00 15:00 23:00 07:00 15:00 23:00 Intake Total 480 ml 1091 ml Balance 480 ml 1091 ml Intake Oral 480 ml 360 ml IV Total 731 ml # Voids 1 2 Result Diagram: 03/23/17 0415 03/23/17 0415 Other Results bp stand ok Objective Remarks awake alert nad Assessment and Plan Assessment and Plan imp still feels alittle dizzy laying down hallpike neg yest stand bp ok off wellbutrin i dw him he if needed should change to diff antidep may have mild peripheral vestibulopathy he can fu my office if needed and persists or see vest rehab o/p AGAIN I ? IF ELIQUIS SHOULD NOT BE BID? I DEFER TO MED TEAM will sign off Jay Huynh MD March 24, 2017 08:49
[2017-03-24] MEDS ORDERED: APIXABAN 5 MG TABLET PO SCH (09:00)
[2017-03-24] MEDS: TIOTROPIUM BROMIDE 18 MCG INH INH SCH (09:04)
[2017-03-24] MEDS: DOFETILIDE 250 MCG CAP PO SCH (09:04)
[2017-03-24] MEDS: TAMSULOSIN HCL 0.4 MG CAP PO SCH (09:04)
[2017-03-24] MEDS: SODIUM CHLORIDE 0.9% FLUSH 10 ML FLUSH IV FLUSH SCH (09:04)
[2017-03-24] MEDS ORDERED: METOPROLOL TARTRATE 25 MG TAB PO SCH (09:15)
--- NOTE | 2017-03-24 14:05 | HHI.PR ---
Subjective Remarks Feeling better Objective Vital Signs Date Time Temp Pulse Resp B/P Pulse Ox O2 Delivery O2 Flow Rate FiO2 03/24/17 13:00 59 03/24/17 12:00 56 03/24/17 11:00 98.0 58 18 125/76 97 03/24/17 11:00 57 03/24/17 10:00 64 03/24/17 09:00 54 03/24/17 08:00 52 03/24/17 07:00 98.0 53 16 124/75 97 03/24/17 07:00 50 03/24/17 06:18 52 03/24/17 05:21 67 03/24/17 04:14 97.3 50 12 128/78 96 03/24/17 04:13 53 03/24/17 03:15 66 03/24/17 02:06 58 03/24/17 01:00 49 03/24/17 00:01 97.8 55 12 126/77 97 03/24/17 00:00 56 03/23/17 23:20 58 03/23/17 23:20 58 03/23/17 22:42 56 03/23/17 22:42 56 03/23/17 21:30 68 03/23/17 21:30 68 03/23/17 20:11 98.5 59 14 123/70 95 03/23/17 20:00 73 03/23/17 18:00 56 03/23/17 18:00 128/79 138/69 03/23/17 17:00 58 03/23/17 16:00 97.8 79 18 132/91 98 03/23/17 16:00 84 03/23/17 15:00 56 I/O 03/23/17 03/23/17 03/23/17 03/24/17 03/24/17 03/24/17 07:00 15:00 23:00 07:00 15:00 23:00 Intake Total 480 ml 1091 ml Balance 480 ml 1091 ml Intake Oral 480 ml 360 ml IV Total 731 ml # Voids 1 2 Result Diagram: 03/23/17 0415 03/23/17 0415 Imaging Alert, fully oriented Lungs: ventilated Heart: S1, S2 regular Abdomen: soft, no mass, obese Ext: no edema Last Impressions Head Magnetic Resonance Angiography 5/7/17 0000 Signed Impressions: Service Date/Time: Thursday, March 23, 2017 13:20 - CONCLUSION: Unremarkable exam. Juan Salas MD Carotid Artery Ultrasound 03/23/17 Signed Impressions: Service Date/Time: Thursday, March 23, 2017 10:07 - CONCLUSION: Minimal plaquing with no evidence of stenosis. Juan Salas MD Brain MRI 03/23/17 Signed Impressions: Service Date/Time: Thursday, March 23, 2017 13:20 - CONCLUSION: 1. No acute hemorrhage, mass or infarction. 2. Mild atrophy and chronic small vessel ischemic changes. Juan Salas MD Head CT 03/22/171732 Signed Impressions: Service Date/Time: Wednesday, March 22, 2017 18:24 - CONCLUSION: Normal examination for a patient of this age. Sergio Mike MD Chest X-Ray 03/22/171732 Signed Impressions: Service Date/Time: Wednesday, March 22, 2017 17:52 - CONCLUSION: 1. No acute findings. Median sternotomy. Tortuous aorta. Sergio Mike MD Current Medications Medications (Trade) Dose Ordered Sig/Dorothea Route Start Time Stop Time Status Last Admin (NS 1000 ml Inj) 1,000 ml @ 100 mls/hr Q10H IV 03/22/17 19:41 03/24/17 09:33 (NS Flush) 2 ml UNSCH PRN IV FLUSH 03/22/17 19:45 (NS Flush) 2 ml BID IV FLUSH 03/22/17 21:00 03/24/17 09:04 (Zofran Inj) 4 mg Q6H PRN IVP 03/22/17 19:45 (Dulcolax Supp) 10 mg DAILY PRN RECTAL 03/22/17 19:45 (Tylenol) 650 mg Q6H PRN PO 03/22/17 19:45 ([place] 5-325 Mg) 1 tab Q4H PRN PO 03/22/17 19:45 (Morphine Inj) 2 mg Q3H PRN IV 03/22/17 19:45 (Flomax) 0.4 mg DAILY PO 03/23/17 09:00 03/24/17 09:04 (Spiriva Inh) 18 mcg DAILY INH 03/22/17 21:00 5/8/17 09:04 (Tikosyn) 500 mcg BID PO 03/22/17 21:00 03/24/17 09:04 (Eliquis) 5 mg BID PO 03/24/17 09:00 03/24/17 09:32 (Lopressor) 50 mg BID PO 03/24/17 21:00 Assessment and Plan Problem List: (1) Syncope Status: Acute Plan: Doing better. No episode of dizziness nor syncope Moving around. Can be DH. If in the future he experiences new episode of syncope the loop recorder will be considered case discussed extensively with patient and follow up as scheduled. (2) A-fib Status: Acute Plan: In sinus rhythm (3) HTN (hypertension) Status: Acute Plan: SBP 125 Problem Qualifiers (1) Syncope: Qualified Code: R55 - Syncope, unspecified syncope type Juvencio Akins MD March 24, 2017 14:05
[2017-03-24] MEDS ORDERED: APIX5TAB PO (14:16)
[2017-03-24] MEDS ORDERED: METO100T PO (14:16)
--- NOTE | 2017-03-24 14:17 | HHI.PR ---
Subjective Remarks Follow-up for syncope, atrial fibrillation. Patient is currently doing well. He feels some dizziness but not as pronounced. Denies any chest pain, shortness of breath, fever or chills. Able to ambulate in the room and to the bathroom. Objective Vitals Vital Signs Date Time Temp Pulse Resp B/P Pulse Ox O2 Delivery O2 Flow Rate FiO2 03/24/17 13:00 59 03/24/17 12:00 56 03/24/17 11:00 98.0 58 18 125/76 97 03/24/17 11:00 57 03/24/17 10:00 64 03/24/17 09:00 54 03/24/17 08:00 52 03/24/17 07:00 98.0 53 16 124/75 97 03/24/17 07:00 50 03/24/17 06:18 52 03/24/17 05:21 67 03/24/17 04:14 97.3 50 12 128/78 96 03/24/17 04:13 53 03/24/17 03:15 66 03/24/17 02:06 58 03/24/17 01:00 49 03/24/17 00:01 97.8 55 12 126/77 97 03/24/17 00:00 56 03/23/17 23:20 58 03/23/17 23:20 58 03/23/17 22:42 56 03/23/17 22:42 56 03/23/17 21:30 68 03/23/17 21:30 68 03/23/17 20:11 98.5 59 14 123/70 95 03/23/17 20:00 73 03/23/17 18:00 56 03/23/17 18:00 128/79 138/69 03/23/17 17:00 58 03/23/17 16:00 97.8 79 18 132/91 98 03/23/17 16:00 84 03/23/17 15:00 56 I/O 03/23/17 03/23/17 03/23/17 03/24/17 03/24/17 03/24/17 07:00 15:00 23:00 07:00 15:00 23:00 Intake Total 480 ml 1091 ml Balance 480 ml 1091 ml Intake Oral 480 ml 360 ml IV Total 731 ml # Voids 1 2 Result Diagram: 03/23/17 0415 03/23/17 0415 Imaging Last Impressions Head Magnetic Resonance Angiography 03/23/17 Signed Impressions: Service Date/Time: Thursday, March 23, 2017 13:20 - CONCLUSION: Unremarkable exam. Juan Salas MD Carotid Artery Ultrasound 03/23/17 Signed Impressions: Service Date/Time: Thursday, March 23, 2017 10:07 - CONCLUSION: Minimal plaquing with no evidence of stenosis. Juan Salas MD Brain MRI 03/23/17 Signed Impressions: Service Date/Time: Thursday, March 23, 2017 13:20 - CONCLUSION: 1. No acute hemorrhage, mass or infarction. 2. Mild atrophy and chronic small vessel ischemic changes. Juan Salas MD Head CT 03/22/171732 Signed Impressions: Service Date/Time: Wednesday, March 22, 2017 18:24 - CONCLUSION: Normal examination for a patient of this age. Sergio Mike MD Chest X-Ray 03/22/171732 Signed Impressions: Service Date/Time: Wednesday, March 22, 2017 17:52 - CONCLUSION: 1. No acute findings. Median sternotomy. Tortuous aorta. Sergio Mike MD Objective Remarks GENERAL: Alert, oriented 3, NAD. SKIN: Warm and dry. HEAD: Normocephalic. EYES: No scleral icterus. No injection or drainage. NECK: Supple, trachea midline. No JVD or lymphadenopathy. CARDIOVASCULAR: Regular rate and rhythm without murmurs, gallops, or rubs. RESPIRATORY: Breath sounds equal bilaterally. No accessory muscle use. GASTROINTESTINAL: Abdomen soft, non-tender, nondistended. MUSCULOSKELETAL: No cyanosis, or edema. BACK: Nontender without obvious deformity. No CVA tenderness. Procedures None. A/P Problem List: (1) Syncope ICD Code: R55 Status: Acute (2) A-fib ICD Code: I48.91 Status: Acute (3) Thrombocytopenia ICD Code: D69.6 Status: Acute (4) COPD (chronic obstructive pulmonary disease) ICD Code: J44.9 Status: Acute (5) HTN (hypertension) ICD Code: I10 Status: Acute Assessment and Plan This is a 71-year-old male with a PMH of Colon CA, A. fib on Eliquis, COPD and HTN who presented to the ER after syncopal event on 03/22/2017. Syncope - c/o sudden onset dizziness/lightheadedness followed by syncope. - CT Head w/ no acute findings, CXR negative. Initial trop negative, EKG w/ no acute ischemia - Dr. Akins evaluated patient and recommended MRI studies of the brain as well as a neurology consult. - MRI studies were unremarkable for any acute findings. - Neurology recommended changing Wellbutrin to some other antidepressant if necessary. - We'll discontinue Wellbutrin. Further anti-depressant can be considered in the future such as Zoloft or Prozac. A-fib: Chronic. Controlled. - Resume Tikosyn - Continue metoprolol. Discussed with Dr. Akins, we will reduce metoprolol from 100 mg to 50 mg twice a day. - Continue apixaban - change dosing to 5 mg twice a day. COPD - Chronic Respiratory Failure. Stable. Resume home Spiriva/DuoNeb Full code. Apixaban. Discharge patient to home Condition on discharge: Improved Heart healthy Diet as tolerated Ad Annamaria activity Rx written: - Apixaban 5 mg twice a day - Metoprolol 50 mg twice a day Follow-up with primary care physician within one week and cardiology within 2 weeks. Problem Qualifiers (1) Syncope: Qualified Code: R55 - Syncope, unspecified syncope type Fredy Boateng DO March 24, 2017 2:16 pm
[2017-03-24] MEDS ORDERED: METOPROLOL TARTRATE 50 MG TAB PO SCH (21:00)
== END 2017-03-24 14:54 | disposition home or self-care (01) ==
LOC: NEPE 17:14 → NEDA 19:31 → NEPGCP 20:42 → HCIS 03-23 15:08
PROVIDERS: ADMIT Hospitalist; ATTEND Hospitalist
DX: R55 Syncope and collapse (principal); I48.2 Chronic atrial fibrillation; I10 Essential (primary) hypertension; D69.6 Thrombocytopenia, unspecified; J44.9 Chronic obstructive pulmonary disease, unspecified; J96.10 Chronic respiratory failure, unspecified whether with hypoxia or hypercapnia; N39.0 Urinary tract infection, site not specified; Z86.79 Personal history of other diseases of the circulatory system; E66.9 Obesity, unspecified; Z68.33 Body mass index [BMI] 33.0-33.9, adult; Z95.1 Presence of aortocoronary bypass graft; Z85.038 Personal history of other malignant neoplasm of large intestine; Z79.01 Long term (current) use of anticoagulants; Z90.49 Acquired absence of other specified parts of digestive tract
CPT/HCPCS: 70450; 70544; 70551; 71010; 80053; 81001; 82550; 83735; 84443; 84484; 85025; 85610; 85730; 93005; 93880; 96360; 99285; G0378; J7030

== ENCOUNTER → 2017-05-29 | Outpatient (CLI) | payer MEDICARE ==
[~2017-05-29] MED LIST changes: -AMLO5TAB96 PO; +APIX5TAB PO; +ASCO100037 PO; +B CO1TAB2 PO; +BECL80AE3 INH; -BUPR150T3 PO; +CALC600T25 PO; +CHEL50TA PO; +CHOL1TAB42 PO; +COEN400C PO; +COQ1200C PO; -COUM4TAB7 PO; -DOFE250 PO; +DOFE500 PO; -ENAL20TA81 PO; +ENAL5TAB PO; +FLUT1SPR5 EACH NARE; +FOLI400T PO; +GLUC500C5 PO; -KLOR20TA6 PO; +LAMO25TA PO; +LORA-373 PO; +METO25TA3 PO; +NIAC500C6 PO; +POTA1TAB4 PO; +PRAS1CAP PO; -SPIR25 PO; +TAMS0.4C4 PO; -TAMS0.4C67 PO; +TIOT12.9 INH; -VASO10TA8 PO; +VITA500T4 PO; +[UNRECOGNIZED DRUG - CODE] PO; +[UNRECOGNIZED DRUG - CODE] PO
[2017-05-29 10:45] LABS: AUTOMATED NEUTROPHIL # 5.3 TH/MM3 (1.8-7.7); BASOPHIL % 0.2 % (0.0-2.0); EOSINOPHIL # 0.1 TH/MM3 (0-0.4); EOSINOPHIL % 1.8 % (0.0-4.0); HEMATOCRIT 49.1 % (39.0-51.0); HEMO FLAGS DIFF FINAL; LYMPH % 10.3 % (9.0-44.0); LYMPHOCYTE # 0.8 TH/MM3 (1.0-4.8); MEAN CORPUSCULAR HEMOGLOBIN 30.4 PG (27.0-34.0); MEAN CORPUSCULAR HGB CONC 32.6 % (32.0-36.0); MONO % 14.9 % (0.0-8.0); NEUT % 72.8 % (16.0-70.0); PLATELET COUNT 117 TH/MM3 (150-450); RED BLOOD COUNT 5.29 MIL/MM3 (4.50-5.90); RED CELL DISTRIBUTION WIDTH 14.9 % (11.6-17.2); WHITE BLOOD COUNT 7.3 TH/MM3 (4.0-11.0)
--- NOTE | 2017-05-31 11:17 | EKG ---
Date Performed: 05/29/2017 Time Performed: 11:05:31 PTAGE: 71 years EKG: SINUS BRADYCARDIA POSSIBLE ANTERIOR MYOCARDIAL INFARCTION, OF INDETERMINATE AGE INFERIOR MY OCARDIAL INFARCTION, OF INDETERMINATE AGE ABNORMAL ECG NO PREVIOUS TRACING DOCTOR: Juan Foster Interpretating Date/Time 05/31/2017 11:07:55
== END ==
LOC: CPRE 10:09
PROVIDERS: ATTEND Surgery
DX: Z01.810 Encounter for preprocedural cardiovascular examination (principal); Z01.812 Encounter for preprocedural laboratory examination; K43.2 Incisional hernia without obstruction or gangrene; R94.31 Abnormal electrocardiogram [ECG] [EKG]
CPT/HCPCS: 36415; 85025; 93005

== ENCOUNTER 2017-06-11 06:09 | Observation (INO) | payer MEDICARE ==
[~2017-06-11] VITALS: Ht 177.8 cm; Wt 112.4 kg
[~2017-06-11 06:09] MED LIST changes: -COQ1200C PO; -METO100T PO; -[UNRECOGNIZED DRUG - CODE] PO; -[UNRECOGNIZED DRUG - CODE] PO
[2017-06-11] MEDS ORDERED: POVIDONE IODINE 5% (ANTISEPSIS KIT) 4 APPLICATIONS EACH NARE PRN (06:45)
[2017-06-11] MEDS ORDERED: ceFAZolin 2 GM PREMIX 50 ML IV SCH (06:45)
[2017-06-11] MEDS ORDERED: INSULIN HUMAN REGULAR 1,000 UNITS/10 ML VIAL SQ PRN (06:45)
[2017-06-11] MEDS ORDERED: CHLORHEXIDINE GLUCONATE 2 % 1 PACK (2 CLOTHS) TOPICAL PRN (06:45)
[2017-06-11] MEDS ORDERED: LACTATED RINGER'S 1000 ML IV PRN (06:45)
[2017-06-11] MEDS ORDERED: metroNIDAZOLE 500 MG INJ 100 ML IV SCH (06:45)
[2017-06-11] MEDS ORDERED: SODIUM CHLORID 0.9% 500 ML IV PRN (06:45)
[2017-06-11] MEDS ORDERED: ACETAMINOPHEN 1000 MG/100 ML VIAL IV SCH (06:45)
[2017-06-11] MEDS ORDERED: ONDANSETRON HCL 4 MG/2 ML VIAL IV PUSH SCH (06:45)
[2017-06-11] MEDS ORDERED: METOPROLOL TARTRATE 25 MG TAB PO PRN (06:45)
[2017-06-11] MEDS ORDERED: ALBU.5I NEB (07:14)
[2017-06-11 07:16] VITALS: BP 135/78; PULSE 53; RESP 20; TEMP 98.8; O2SAT 96
[2017-06-11] MEDS ORDERED: HYDROmorphone HCL PF 2 MG/ML VIAL ONE (08:07)
[2017-06-11] MEDS ORDERED: ceFAZolin INJ 1,000 MG VIAL IV ONE (09:08)
[2017-06-11] MEDS ORDERED: BUPIVACAINE/EPINEPHRINE 0.25% 50 ML VIAL INFIL ONE (09:11)
[2017-06-11] MEDS ORDERED: ONDANSETRON HCL 4 MG/2 ML VIAL IV PRN (12:45)
[2017-06-11] MEDS ORDERED: MORPHINE SULFATE 30 MG/30 ML PCA IV SCH (12:45)
[2017-06-11] MEDS ORDERED: oxyCODONE/ACETAMINOPHEN 5 MG/325 MG TAB PO PRN (12:45)
[2017-06-11] MEDS ORDERED: Post-op Orders (for Pharmacy) MISC XX ONE (12:45)
[2017-06-11] MEDS ORDERED: METOCLOPRAMIDE HCL 10 MG/2 ML VIAL IVS PRN (12:45)
[2017-06-11] MEDS ORDERED: NALOXONE HCL 0.4 MG/ML AMP IV PRN (12:45)
[2017-06-11] MEDS ORDERED: SODIUM CHLORIDE 0.9% FLUSH 10 ML FLUSH IV FLUSH PRN (12:45)
[2017-06-11] MEDS ORDERED: ACETAMINOPHEN 325 MG TAB PO PRN (12:45)
[2017-06-11] MEDS: D5-NS + KCL 20 MEQ INJ 1,000 ML IV SCH ×2 (12:45→19:58)
[2017-06-11] MEDS ORDERED: DO NOT ADM ANY ANTICOAGULANT DRUGS PRN (13:07)
[2017-06-11] MEDS ORDERED: *morphine SULFATE 8 MG/ML PERIprocedure ONLY ONE ×3 (13:16→15:11)
[2017-06-11] MEDS ORDERED: ePHEDrine/NS 25 MG/5 ML SYR IV ONE (13:22)
[2017-06-11] MEDS ORDERED: PROPOFOL 200 MG/20 ML AMP IV ONE (13:22)
[2017-06-11] MEDS ORDERED: NEOSTIGMINE 3 MG/3 ML SYR IV ONE (13:22)
[2017-06-11] MEDS ORDERED: LACTATED RINGER'S 1000 ML INJ 1,000 ML IV ONE (13:23)
[2017-06-11] MEDS ORDERED: ONDANSETRON HCL 4 MG/2 ML VIAL IV PUSH ONE (13:23)
[2017-06-11] MEDS ORDERED: *MEPERIDINE 25 MG INJ VIAL PERIprocedural Use ONLY ONE (13:47)
[2017-06-11] MEDS ORDERED: PCA - TOTAL MG MORPHINE DELIVERED PER SHIFT SCH (14:00)
[2017-06-11] MEDS ORDERED: fentaNYL CITRATE 250 MCG/5 ML AMP ONE (14:33)
[2017-06-11 16:00] VITALS: BP 151/81; PULSE 73; RESP 20; TEMP 97.5; O2SAT 94
[2017-06-11] MEDS: metroNIDAZOLE 500 MG INJ 100 ML IV SCH (17:18)
[2017-06-11 20:00] VITALS: BP 158/79; PULSE 79; RESP 18; TEMP 95.8; O2SAT 96
[2017-06-11] MEDS: ENALAPRIL MALEATE 5 MG TAB PO SCH (20:16)
[2017-06-11] MEDS: METOPROLOL TARTRATE 25 MG TAB PO SCH (20:16)
[2017-06-11] MEDS: SODIUM CHLORIDE 0.9% FLUSH 10 ML FLUSH IV FLUSH SCH (20:17)
[2017-06-11] MEDS: DOFETILIDE 250 MCG CAP PO SCH (20:17)
[2017-06-11] MEDS: BECLOMETHASONE DIPROPIONATE 80 MCG/ACT 8.7 GM INHALER INH SCH (20:17)
[2017-06-11] MEDS: oxyCODONE/ACETAMINOPHEN 5 MG/325 MG TAB PO PRN (20:26)
[2017-06-11] MEDS ORDERED: DOFETILIDE 500 MCG CAP PO SCH (21:00)
[2017-06-11 21:45] VITALS: O2SAT 96
[2017-06-12] VITALS (8 sets, daily range): BP systolic 103–150; BP diastolic 55–78; PULSE 70–101; RESP 17–22; TEMP 96.7–100.1; O2SAT 95–98
[2017-06-12] MEDS: metroNIDAZOLE 500 MG INJ 100 ML IV SCH ×2 (00:19→08:33)
[2017-06-12] MEDS: oxyCODONE/ACETAMINOPHEN 5 MG/325 MG TAB PO PRN ×5 (00:22→21:07)
[2017-06-12] MEDS: D5-NS + KCL 20 MEQ INJ 1,000 ML IV SCH ×4 (04:45→21:11)
[2017-06-12 06:29] LABS: AUTOMATED NEUTROPHIL # 10.3 TH/MM3 (1.8-7.7); BASOPHIL % 0.2 % (0.0-2.0); EOSINOPHIL % 0.1 % (0.0-4.0); HEMATOCRIT 46.3 % (39.0-51.0); HEMO FLAGS DIFF FINAL; LYMPH % 4.6 % (9.0-44.0); LYMPHOCYTE # 0.6 TH/MM3 (1.0-4.8); MEAN CELL VOLUME 94.5 FL (80.0-100.0); MEAN CORPUSCULAR HEMOGLOBIN 30.5 PG (27.0-34.0); MEAN CORPUSCULAR HGB CONC 32.3 % (32.0-36.0); MONO % 12.4 % (0.0-8.0); NEUT % 82.7 % (16.0-70.0); PLATELET COUNT 129 TH/MM3 (150-450); RED BLOOD COUNT 4.91 MIL/MM3 (4.50-5.90); RED CELL DISTRIBUTION WIDTH 14.4 % (11.6-17.2); WHITE BLOOD COUNT 12.5 TH/MM3 (4.0-11.0)
[2017-06-12] MEDS: METOPROLOL TARTRATE 25 MG TAB PO SCH ×2 (08:32→21:08)
[2017-06-12] MEDS: TAMSULOSIN HCL 0.4 MG CAP PO SCH (08:32)
[2017-06-12] MEDS: ENALAPRIL MALEATE 5 MG TAB PO SCH ×2 (08:32→21:00)
[2017-06-12] MEDS: DOFETILIDE 250 MCG CAP PO SCH ×2 (08:32→21:07)
[2017-06-12] MEDS: lamoTRIgine 25 MG TAB PO SCH (08:32)
[2017-06-12] MEDS: BECLOMETHASONE DIPROPIONATE 80 MCG/ACT 8.7 GM INHALER INH SCH ×4 (08:33→21:14)
[2017-06-12] MEDS: SODIUM CHLORIDE 0.9% FLUSH 10 ML FLUSH IV FLUSH SCH ×2 (08:34→21:12)
[2017-06-12] MEDS ORDERED: NON-FORMULARY DRUG (Tiotropium Inh (Spiriva Respimat Inh) 2 PUFF) INH SCH (09:00)
[2017-06-12] MEDS: PT:SPIRIVA RESPIMAT INH SCH (09:00)
[2017-06-12] MEDS ORDERED: ENOXAPARIN SODIUM 40 MG/0.4 ML SYRINGE SQ SCH (12:00)
--- NOTE | 2017-06-12 12:10 | HHI.PR ---
Subjective Subjective Notes 71yo male POD#1 laparoscopic abdominal hernia repair. Sitting up in bed in no acute distress. Denies nausea or vomiting. Tolerating clears. Not passing flatus yet. Objective Vitals/I&O Vital Signs Date Time Temp Pulse Resp B/P Pulse Ox O2 Delivery O2 Flow Rate FiO2 06/12/17 08:02 98 Nasal Cannula 2.00 06/12/17 08:00 97.8 93 20 128/72 Labs Laboratory Tests Test 06/12/17 04:46 White Blood Count 12.5 Red Blood Count 4.91 Hemoglobin 15.0 Hematocrit 46.3 Mean Corpuscular Volume 94.5 Mean Corpuscular Hemoglobin 30.5 Mean Corpuscular Hemoglobin 32.3 Concent Red Cell Distribution Width 14.4 Platelet Count 129 Mean Platelet Volume 8.8 Neutrophils (%) (Auto) 82.7 Lymphocytes (%) (Auto) 4.6 Monocytes (%) (Auto) 12.4 Eosinophils (%) (Auto) 0.1 Basophils (%) (Auto) 0.2 Neutrophils # (Auto) 10.3 Lymphocytes # (Auto) 0.6 Monocytes # (Auto) 1.5 Eosinophils # (Auto) 0.0 Basophils # (Auto) 0.0 CBC Comment DIFF FINAL Differential Comment Cardiovascular: Regular Lungs: Clear Abdomen: Post-op tenderness Extremities: Perfused Wound Wound : Wound Location: Abdomen Appearance: Clean & Dry A/P Assessment and Plan Continue with frequent ambulation Oral fluids as tolerated The exam, history, and the medical decision-making described in the above note were completed with the assistance of the mid-level provider. I reviewed and agree with the findings presented. I attest that I had a [id number] encounter with the patient on the same day, and personally performed and documented my assessment and findings in the medical record. Discharge Planning D/C home tomorrow Jay Guerin Jun 12, 2017 12:10 Magen Holguin MD Aug 03, 2017 18:05
[2017-06-13] VITALS (8 sets, daily range): BP systolic 105–125; BP diastolic 58–75; PULSE 70–106; RESP 16–20; TEMP 98.1–100.5; O2SAT 93–98
[2017-06-13] MEDS: oxyCODONE/ACETAMINOPHEN 5 MG/325 MG TAB PO PRN ×4 (01:51→20:23)
[2017-06-13] MEDS: TAMSULOSIN HCL 0.4 MG CAP PO SCH ×2 (07:56→09:54)
[2017-06-13] MEDS: lamoTRIgine 25 MG TAB PO SCH ×2 (07:56→09:54)
[2017-06-13] MEDS: APIXABAN 5 MG TABLET PO SCH ×3 (07:56→20:26)
[2017-06-13] MEDS: BECLOMETHASONE DIPROPIONATE 80 MCG/ACT 8.7 GM INHALER INH SCH ×3 (07:57→20:28)
[2017-06-13] MEDS: PT:SPIRIVA RESPIMAT INH SCH (07:57)
[2017-06-13] MEDS: ENALAPRIL MALEATE 5 MG TAB PO SCH ×3 (07:57→20:29)
[2017-06-13] MEDS: SODIUM CHLORIDE 0.9% FLUSH 10 ML FLUSH IV FLUSH SCH ×2 (07:57→20:36)
[2017-06-13] MEDS: METOPROLOL TARTRATE 25 MG TAB PO SCH ×3 (07:57→20:25)
[2017-06-13] MEDS: DOFETILIDE 250 MCG CAP PO SCH ×3 (07:57→20:29)
[2017-06-13] MEDS: DOCUSATE SODIUM 100 MG CAP PO SCH ×2 (09:54→20:26)
[2017-06-13] MEDS: METOCLOPRAMIDE HCL 10 MG TAB PO SCH ×3 (09:55→20:26)
[2017-06-13] MEDS: D5-NS + KCL 20 MEQ INJ 1,000 ML IV SCH ×2 (12:45→13:53)
--- NOTE | 2017-06-13 13:08 | HHI.PR ---
Subjective Subjective Notes 71yo male POD#2 laparoscopic abdominal hernia repair. Complains of irregular heartbeat with some shortness of breath. Denies chest pain or dizziness. No flatus yet. Objective Vitals/I&O Vital Signs Date Time Temp Pulse Resp B/P Pulse Ox O2 Delivery O2 Flow Rate FiO2 06/13/17 12:00 98.5 95 17 124/75 95 06/13/17 08:10 21 06/13/17 04:00 Room Air 06/12/17 08:02 2.00 Cardiovascular: Irregular Lungs: Clear Abdomen: Post-op tenderness Extremities: Perfused Wound Wound : Wound Location: Abdomen Appearance: Clean & Dry A/P Assessment and Plan STAT EKG Consult Dr. Dong as he is known to this patient. Was already placed back on oral anticoagulation and antiarrhythmics Continue with frequent ambulation Oral fluids as tolerated Bowel regimen The exam, history, and the medical decision-making described in the above note were completed with the assistance of the mid-level provider. I reviewed and agree with the findings presented. I attest that I had a [id number] encounter with the patient on the same day, and personally performed and documented my assessment and findings in the medical record. Discharge Planning D/C home possibly later today or tomorrow Jay Guerin Jun 13, 2017 13:07 Magen Holguin MD Aug 03, 2017 18:10
--- NOTE | 2017-06-13 15:49 | PD.CONS ---
HPI Consult Requested By Primary Care Physician No Primary Care Physician History of Present Illness 71 y/o M with pmhx of afib s/p ablation on OAC that was admitted for hernia repair consulted for afib with RVR. Reports palpitations and abdominal pain post op, denies chest pain, sob, leg edema and syncope. Review of Systems Consitutional: DENIES: Fatigue, Fever, Chills, Weight gain, Weight loss Eyes: DENIES: Amaurosis Fugax, Change in vision HEENT: DENIES: Lightheadedness, Change in hearing Respiratory: DENIES: See HPI, Cough, Snoring, Shortness of breath, Wheezing, Sputum production Cardiovascular: COMPLAINS OF: Palpitations, DENIES: See HPI, Chest pain, Syncope, Tachycardia Gastrointestinal: DENIES: Nausea, Vomiting, Change in bowel habits, Reflux, Bloody stools, Melena Genitourinary: DENIES: Urinary incontinence, Difficulty voiding Integumentary: DENIES: Rash Neurologic: DENIES: Tingling or numbness, Memory problems, Poor Balance, Stroke symptoms Musculoskeletal: DENIES: Joint pain, Muscle pain, Limited range of motion, Back pain Psychiatric: DENIES: Anxiety, Depression, Sleep disturbances Hematologic: DENIES: Bruising tendencies, Bleeding tendencies Endocrine: DENIES: Weight gain, Weight loss, Thyroid disease Past Family Social History Allergies: Coded Allergies: No Known Allergies (Verified , 05/29/17) Past Medical History afib Past Surgical History s/p ablation Reported Medications Reported Meds & Active Scripts Active Eliquis (Apixaban) 5 Mg Tab 5 Mg PO BID Reported Albuterol Neb (Albuterol Sulfate) 2.5 Mg/0.5 Ml Neb 2.5 Mg NEB Q6HR NEB Note: The Albuterol Sulfate Inhalation Solution is concentrated and must be diluted. Read complete instructions carefully before using. Vitamin C (Ascorbic Acid) 1,000 Mg Tab.chew 1,000 Mg PO DAILY Coq-10 (Coenzyme Q10 (Ubidecarenone)) 400 Mg Cap 1 Caplet PO DAILY Niacin Inositol 500 mg Capsule (Niacin (Inositol Niacinate)) 400 Mg Capsule Unknown Dose PO DAILY Lamotrigine 25 Mg Tab 25 Mg PO DAILY Lorazepam 0.5 Mg Tab 0.5 Mg PO DAILY PRN Enalapril (Enalapril Maleate) 5 Mg Tab 5 Mg PO BID Metoprolol Tartrate 25 Mg Tab 25 Mg PO BID Qvar Inh (Beclomethasone Dipropionate) 80 Mcg/Act Aero 1 Puff INH QID Folic Acid 400 Mcg Tab 400 Mcg PO DAILY Zinc (Zinc Gluconate) 50 Mg Tab 50 Mg PO EVERY OTHER DAY B Complex W/ C 1 Tab Tab 1 Tab PO BID Vitamin D-3 (Cholecalciferol) 2,000 Unit Tab 2,000 Units PO QID Glucosamine (Glucosamine Sulfate) 500 Mg Cap Unknown Dose PO AC DINNER Dhea 25 (Prasterone (DHEA)) 25 Mg Cap 25 Mg PO BID Vitamin B-12 (Cyanocobalamin) 500 Mcg Tab 500 Mcg PO BID Calcium (Calcium Carbonate) 600 Mg Tab 600 Mg PO DAILY Spiriva Respimat Inh (Tiotropium Inh) 2.5 Mcg/Act Aero 2 Puff INH DAILY 2.5 mcg = 1 inhalation Flonase Nasal Collison (Fluticasone Nasal Collison) 50 Mcg/Act Collison 1 Spr EACH NARE DAILY Tikosyn (Dofetilide) 500 Mcg Cap 500 Mcg PO BID For Creatinine Clearance >60 mL/min K-Tab (Potassium Chloride) 20 Meq Tab 20 Meq PO BID Tamsulosin (Tamsulosin HCl) 0.4 Mg Cap 0.4 Mg PO DAILY Active Ordered Medications Current Medications Medications (Trade) Dose Ordered Sig/Dorothea Route Start Time Stop Time Status Last Admin Lactated Ringer's 1,000 ml @ 30 mls/hr Q24H PRN IV 06/11/17 06:45 06/14/17 06:44 06/11/17 07:15 Sodium Chloride 500 ml @ 30 mls/hr [id number] PRN IV 06/11/17 06:45 06/14/17 06:44 (D5-NS + KCl 20 Meq Inj) 1,000 ml @ 125 mls/hr Q8H IV 06/11/17 12:45 06/13/17 13:53 (NS Flush) 2 ml UNSCH PRN IV FLUSH 06/11/17 12:45 (NS Flush) 2 ml BID IV FLUSH 06/11/17 21:00 06/13/17 07:57 (Tylenol) 650 mg Q4H PRN PO 06/11/17 12:45 (Percocet 5-325 Mg) 1 tab Q4H PRN PO 06/11/17 12:45 (Percocet 5-325 Mg) 2 tab Q4H PRN PO 06/11/17 12:45 06/13/17 11:36 (Zofran Inj) 4 mg Q4H PRN IV 06/11/17 12:45 (Reglan Inj) 10 mg Q6H PRN IVS 06/11/17 12:45 (Qvar 80 Mcg Inh) 1 puff QID INH 06/11/17 21:00 06/13/17 13:00 (Vasotec) 5 mg BID PO 06/11/17 21:00 06/12/17 08:32 (LaMICtal) 25 mg DAILY PO 06/12/17 09:00 06/13/17 09:54 (Lopressor) 25 mg BID PO 06/11/17 21:00 06/13/17 09:53 (Flomax) 0.4 mg DAILY PO 06/12/17 09:00 06/13/17 09:54 Patient Own Medication PT OWN MED: SPIR... DAILY INH 06/12/17 09:00 (Tikosyn) 500 mcg BID PO 06/11/17 21:00 06/13/17 09:53 (Eliquis) 5 mg BID PO 06/13/17 09:00 06/13/17 09:53 (Colace) 100 mg BID PO 06/13/17 09:00 06/13/17 09:54 (Reglan) 10 mg ACHS PO 06/13/17 11:00 06/13/17 09:55 (Milk Of Magnesia Liq) 30 ml DAILY PRN PO 06/13/17 08:45 Physical Exam Vital Signs Vital Signs Date Time Temp Pulse Resp B/P Pulse Ox O2 Delivery O2 Flow Rate FiO2 06/13/17 12:00 98.5 95 17 124/75 95 06/13/17 08:10 98 21 06/13/17 08:00 98.1 70 16 110/58 93 06/13/17 04:00 98.2 74 20 105/59 95 06/13/17 04:00 Room Air 06/13/17 00:00 98.2 79 20 114/64 93 06/13/17 00:00 Room Air 06/12/17 20:00 98.2 70 22 105/55 95 06/12/17 20:00 Room Air 06/12/17 17:11 95 21 06/12/17 16:00 100.1 86 17 103/72 95 Physical Exam GENERAL: Well-nourished, well-developed patient. SKIN: Warm and dry. HEAD: Normocephalic. EYES: No scleral icterus. No injection or drainage. NECK: Supple, trachea midline. No JVD or lymphadenopathy. CARDIOVASCULAR: Irr Irr no murmurs, gallops, or rubs. RESPIRATORY: Breath sounds equal bilaterally. No accessory muscle use. GASTROINTESTINAL: Abdomen soft, non-tender, nondistended. EXTREMITIES: No cyanosis, or edema. NEUROLOGICAL: Awake, alert, and oriented x 3. Non-focal. Result Diagram: 06/12/17 0446 Assessment and Plan Problem List: (1) A-fib Assessment and Plan: 71 y/o male s/p laparoscopic abdominal hernia repair. Not passing flatus yet. Consulted for Afib with RVR. Afib exacerbation in the setting of recent surgery. No need for invasive cardiac work up. No recent BMP on chart. Recommendations: 1. Cont Dofetilide and Metoprolol 2. Cont OAC with Eliquis 3. Pain management 4. Get BMP 5. Avoid electrolytes abnormalities 6. Encourage incentive spirometry and ambulation 7. Hospitalist consult for medical management 8. Telemetry monitoring Further therapy to be determined (2) COPD (chronic obstructive pulmonary disease) (3) Syncope (4) Thrombocytopenia (5) HTN (hypertension) Problem Qualifiers (1) A-fib: Qualified Code: I48.2 - Chronic atrial fibrillation Anibal Mota MD Jun 13, 2017 15:49
[2017-06-13] MEDS: MAGNESIUM HYDROXIDE SUSP 30 ML CUP PO PRN (17:32)
[2017-06-13 22:10] LABS: ANION GAP 6 MEQ/L (5-15); AST (GOT) 21 U/L (15-37); BICARBONATE 25.6 MEQ/L (21.0-32.0); BLOOD UREA NITROGEN 12 MG/DL (7-18); CHLORIDE 102 MEQ/L (98-107); GLOMERULAR FILTRATION RATE 94 ML/MIN (>89); MAGNESIUM 1.9 MG/DL (1.5-2.5); POTASSIUM 3.9 MEQ/L (3.5-5.1); SODIUM (NA) 134 MEQ/L (136-145)
[2017-06-13 22:11] LABS: ALT (GPT) 16 U/L (12-78)
[2017-06-13 22:14] LABS: ALKALINE PHOSPHATASE 56 U/L (45-117); TOTAL BILIRUBIN ADULT 3.3 MG/DL (0.2-1.0)
[2017-06-14] VITALS: BP 119/70; PULSE 87; RESP 18; TEMP 99.8; O2SAT 95
[2017-06-14 04:00] VITALS: BP 125/73; PULSE 84; RESP 18; TEMP 99.7; O2SAT 94
[2017-06-14] MEDS: D5-NS + KCL 20 MEQ INJ 1,000 ML IV SCH ×4 (04:45→20:45)
[2017-06-14] MEDS: METOCLOPRAMIDE HCL 10 MG TAB PO SCH ×4 (05:03→21:00)
[2017-06-14 08:00] VITALS: BP 131/70; PULSE 111; RESP 20; TEMP 98.7; O2SAT 95
[2017-06-14] MEDS: PT:SPIRIVA RESPIMAT INH SCH (09:00)
[2017-06-14] MEDS: APIXABAN 5 MG TABLET PO SCH ×2 (10:13→21:27)
[2017-06-14] MEDS: DOFETILIDE 250 MCG CAP PO SCH ×2 (10:13→21:25)
[2017-06-14] MEDS: lamoTRIgine 25 MG TAB PO SCH (10:13)
[2017-06-14] MEDS: TAMSULOSIN HCL 0.4 MG CAP PO SCH (10:13)
--- NOTE | 2017-06-14 10:13 | PD.CARD.PN ---
Subjective Subjective Remarks No CV complaints Afib on telemetry Rate control No flatus Objective Medications Current Medications Medications (Trade) Dose Ordered Sig/Dorothea Route Start Time Stop Time Status Last Admin (D5-NS + KCl 20 Meq Inj) 1,000 ml @ 125 mls/hr Q8H IV 06/11/17 12:45 06/13/17 13:53 (NS Flush) 2 ml UNSCH PRN IV FLUSH 06/11/17 12:45 (NS Flush) 2 ml BID IV FLUSH 06/11/17 21:00 06/13/17 20:36 (Tylenol) 650 mg Q4H PRN PO 06/11/17 12:45 (Percocet 5-325 Mg) 1 tab Q4H PRN PO 06/11/17 12:45 06/14/17 05:06 (Percocet 5-325 Mg) 2 tab Q4H PRN PO 06/11/17 12:45 06/13/17 20:23 (Zofran Inj) 4 mg Q4H PRN IV 06/11/17 12:45 06/14/17 02:32 (Reglan Inj) 10 mg Q6H PRN IVS 06/11/17 12:45 (Qvar 80 Mcg Inh) 1 puff QID INH 06/11/17 21:00 06/13/17 20:28 (Vasotec) 5 mg BID PO 06/11/17 21:00 06/12/17 08:32 (LaMICtal) 25 mg DAILY PO 06/12/17 09:00 06/13/17 09:54 (Lopressor) 25 mg BID PO 06/11/17 21:00 06/13/17 20:25 (Flomax) 0.4 mg DAILY PO 06/12/17 09:00 06/13/17 09:54 Patient Own Medication PT OWN MED: SPIR... DAILY INH 06/12/17 09:00 (Tikosyn) 500 mcg BID PO 06/11/17 21:00 06/13/17 20:29 (Eliquis) 5 mg BID PO 06/13/17 09:00 06/13/17 20:26 (Colace) 100 mg BID PO 06/13/17 09:00 06/13/17 20:26 (Reglan) 10 mg ACHS PO 06/13/17 11:00 06/14/17 05:03 (Milk Of Antonio Zelaya) 30 ml DAILY PRN PO 06/13/17 08:45 06/13/17 17:32 Vital Signs / I&O Vital Signs Date Time Temp Pulse Resp B/P Pulse Ox O2 Delivery O2 Flow Rate FiO2 06/14/17 08:00 98.7 111 20 131/70 95 06/14/17 04:00 99.7 84 18 125/73 94 06/14/17 00:00 99.8 87 18 119/70 95 06/13/17 23:44 106 06/13/17 20:00 100.5 79 18 119/65 95 06/13/17 16:00 99.6 103 17 125/73 95 06/13/17 12:00 98.5 95 17 124/75 95 I/O 06/13/17 06/13/17 06/13/17 06/14/17 06/14/17 06/14/17 06:59 14:59 22:59 06:59 14:59 22:59 Intake Total 1224 ml 240 ml 360 ml 120 ml Output Total 200 ml 0 ml 350 ml Balance 1024 ml 240 ml 360 ml -230 ml Intake Oral 240 ml 240 ml 360 ml 120 ml IV Total 984 ml Output Urine Total 200 ml 0 ml 350 ml # Voids 2 # Bowel Movements 0 0 Physical Exam GENERAL: Well-nourished, well-developed patient. SKIN: Warm and dry. HEAD: Normocephalic. EYES: No scleral icterus. No injection or drainage. NECK: Supple, trachea midline. No JVD or lymphadenopathy. CARDIOVASCULAR: Irr Irr no murmurs, gallops, or rubs. RESPIRATORY: Breath sounds equal bilaterally. No accessory muscle use. GASTROINTESTINAL: Abdomen soft, non-tender, nondistended. EXTREMITIES: No cyanosis, or edema. NEUROLOGICAL: Awake, alert, and oriented x 3. Non-focal. Laboratory Laboratory Tests Test 06/13/17 21:31 Sodium Level 134 MEQ/L Potassium Level 3.9 MEQ/L Chloride Level 102 MEQ/L Carbon Dioxide Level 25.6 MEQ/L Anion Gap 6 MEQ/L Blood Urea Nitrogen 12 MG/DL Creatinine 0.81 MG/DL Estimat Glomerular Filtration 94 ML/MIN Rate Random Glucose 126 MG/DL Calcium Level 8.6 MG/DL Magnesium Level 1.9 MG/DL Total Bilirubin 3.3 MG/DL Aspartate Amino Transf 21 U/L (AST/SGOT) Alanine Aminotransferase 16 U/L (ALT/SGPT) Alkaline Phosphatase 56 U/L Total Protein 6.4 GM/DL Albumin 3.0 GM/DL Assessment and Plan Problem List: (1) A-fib Assessment and Plan: Cont rate control Cont OAC Cont Telemetry Avoid electrolytes abnormalities (2) COPD (chronic obstructive pulmonary disease) (3) Syncope (4) Thrombocytopenia (5) HTN (hypertension) Problem Qualifiers (1) A-fib: Qualified Code: I48.2 - Chronic atrial fibrillation Anibal Mota MD Jun 14, 2017 10:13
[2017-06-14] MEDS: DOCUSATE SODIUM 100 MG CAP PO SCH ×2 (10:14→21:00)
[2017-06-14] MEDS: ENALAPRIL MALEATE 5 MG TAB PO SCH ×2 (10:15→21:26)
[2017-06-14] MEDS: BECLOMETHASONE DIPROPIONATE 80 MCG/ACT 8.7 GM INHALER INH SCH ×4 (10:16→21:33)
[2017-06-14] MEDS: METOPROLOL TARTRATE 25 MG TAB PO SCH ×2 (10:16→21:33)
[2017-06-14] MEDS: SODIUM CHLORIDE 0.9% FLUSH 10 ML FLUSH IV FLUSH SCH ×2 (10:18→21:33)
[2017-06-14 12:00] VITALS: BP 131/74; PULSE 65; RESP 20; TEMP 98.5; O2SAT 94
--- NOTE | 2017-06-14 15:05 | HHI.PR ---
Subjective Subjective Notes no acute issues, no flatus, no bm, mild nausea, oob Objective Vitals/I&O Vital Signs Date Time Temp Pulse Resp B/P Pulse Ox O2 Delivery O2 Flow Rate FiO2 06/14/17 12:00 98.5 65 20 131/74 94 06/13/17 08:10 21 06/13/17 04:00 Room Air 06/12/17 08:02 2.00 Labs Laboratory Tests Test 06/13/17 21:31 Sodium Level 134 Potassium Level 3.9 Chloride Level 102 Carbon Dioxide Level 25.6 Anion Gap 6 Blood Urea Nitrogen 12 Creatinine 0.81 Estimat Glomerular Filtration 94 Rate Random Glucose 126 Calcium Level 8.6 Magnesium Level 1.9 Total Bilirubin 3.3 Aspartate Amino Transf 21 (AST/SGOT) Alanine Aminotransferase 16 (ALT/SGPT) Alkaline Phosphatase 56 Total Protein 6.4 Albumin 3.0 Cardiovascular: Irregular Abdomen: Other (soft incisional tenderness) A/P Assessment and Plan s/p lap ventral hernia repair PLAN Await cardio recs for d/c diet as tolerated pain control bowel regimen d/c planning Humberto Mcconnell MD Jun 14, 2017 15:05
[2017-06-14] MEDS: MAGNESIUM HYDROXIDE SUSP 30 ML CUP PO PRN (15:11)
[2017-06-14] MEDS ORDERED: BISACODYL 10 MG SUPP RECTAL ONE (16:00)
[2017-06-14 17:24] VITALS: BP 129/76; PULSE 78; RESP 20; TEMP 98; O2SAT 95
--- NOTE | 2017-06-14 19:22 | EKG ---
Date Performed: 06/13/2017 Time Performed: 13:09:11 PTAGE: 71 years EKG: ATRIAL FIBRILLATION POSSIBLE ANTERIOR MYOCARDIAL INFARCTION , OF INDETERMINATE AGE INFERIOR MYOCARDIAL INFARCTION , PROBABLY OLD ABNORMAL ECG Compared to PREVIOUS TRACING , the rhythm has changed from Sinus rhythm with first degree AV block to atrial fibrillation with controlled ventricular response. PREVIOUS TRA CIN05/29/2017 11.05 DOCTOR: Parveen Danielle Interpretating Date/Time 06/14/2017 19:20:53
[2017-06-14 20:00] VITALS: BP 127/75; PULSE 103; PULSE 85; RESP 20; TEMP 99.4; O2SAT 95
[2017-06-15] VITALS: BP 136/77; PULSE 80; RESP 20; TEMP 98.4; O2SAT 95
[2017-06-15 04:00] VITALS: BP 147/91; PULSE 85; RESP 20; TEMP 98; O2SAT 95
[2017-06-15] MEDS: D5-NS + KCL 20 MEQ INJ 1,000 ML IV SCH ×3 (04:45→20:33)
[2017-06-15] MEDS: METOCLOPRAMIDE HCL 10 MG TAB PO SCH ×4 (04:54→20:32)
[2017-06-15 08:00] VITALS: BP 124/69; PULSE 74; RESP 16; TEMP 98.9; O2SAT 95
[2017-06-15] MEDS: DOCUSATE SODIUM 100 MG CAP PO SCH ×2 (09:00→20:32)
[2017-06-15] MEDS: PT:SPIRIVA RESPIMAT INH SCH (09:00)
[2017-06-15] MEDS: BECLOMETHASONE DIPROPIONATE 80 MCG/ACT 8.7 GM INHALER INH SCH ×4 (09:06→20:34)
[2017-06-15] MEDS: APIXABAN 5 MG TABLET PO SCH ×2 (09:07→20:32)
[2017-06-15] MEDS: lamoTRIgine 25 MG TAB PO SCH (09:07)
[2017-06-15] MEDS: DOFETILIDE 250 MCG CAP PO SCH ×2 (09:07→20:32)
[2017-06-15] MEDS: TAMSULOSIN HCL 0.4 MG CAP PO SCH (09:07)
[2017-06-15] MEDS: ENALAPRIL MALEATE 5 MG TAB PO SCH ×2 (09:08→20:32)
[2017-06-15] MEDS: METOPROLOL TARTRATE 25 MG TAB PO SCH (09:09)
[2017-06-15] MEDS: SODIUM CHLORIDE 0.9% FLUSH 10 ML FLUSH IV FLUSH SCH ×2 (09:11→20:33)
[2017-06-15 12:00] VITALS: BP 118/71; PULSE 101; RESP 17; TEMP 99.6; O2SAT 94
[2017-06-15 16:00] VITALS: BP 142/80; PULSE 103; RESP 18; TEMP 97; O2SAT 93
--- NOTE | 2017-06-15 17:59 | PD.CARD.PN ---
Subjective Subjective Remarks no CV complaints Objective Vital Signs / I&O Vital Signs Date Time Temp Pulse Resp B/P Pulse Ox O2 Delivery O2 Flow Rate FiO2 06/15/17 16:00 97.0 103 18 142/80 93 06/15/17 12:00 99.6 101 17 118/71 94 06/15/17 08:35 Room Air 06/15/17 08:00 98.9 74 16 124/69 95 06/15/17 04:00 98.0 85 20 147/91 95 06/15/17 00:00 98.4 80 20 136/77 95 06/14/17 20:00 103 06/14/17 20:00 99.4 85 20 127/75 95 I/O 06/14/17 06/14/17 06/14/17 06/15/17 06/15/17 06/15/17 07:00 15:00 23:00 07:00 15:00 23:00 Intake Total 120 ml 320 ml 240 ml 120 ml 240 ml Output Total 350 ml 720 ml Balance -230 ml 320 ml -480 ml 120 ml 240 ml Intake Oral 120 ml 320 ml 240 ml 120 ml 240 ml IV Total 0 ml 0 ml Output Urine Total 350 ml 720 ml # Voids 4 3 # Bowel Movements 1 4 0 Physical Exam GENERAL: Well-nourished, well-developed patient. SKIN: Warm and dry. HEAD: Normocephalic. EYES: No scleral icterus. No injection or drainage. NECK: Supple, trachea midline. No JVD or lymphadenopathy. CARDIOVASCULAR: Irr Irr no murmurs, gallops, or rubs. RESPIRATORY: Breath sounds equal bilaterally. No accessory muscle use. GASTROINTESTINAL: Abdomen soft, non-tender, nondistended. EXTREMITIES: No cyanosis, or edema. NEUROLOGICAL: Awake, alert, and oriented x 3. Non-focal. Assessment and Plan Problem List: (1) A-fib Assessment and Plan: Afib with RVR in the setting of recent surgery. Rate better controlled. Cont rate control, increase Lopressor to 50mg PO BID Cont OAC Cont Telemetry Avoid electrolytes abnormalities Follow up with Dr. Akins upon discharge (2) COPD (chronic obstructive pulmonary disease) (3) Syncope (4) Thrombocytopenia (5) HTN (hypertension) Problem Qualifiers (1) A-fib: Qualified Code: I48.2 - Chronic atrial fibrillation Anibal Mota MD Jun 15, 2017 17:59
[2017-06-15 20:00] VITALS: BP 158/83; PULSE 77; RESP 18; TEMP 99.6; O2SAT 95
[2017-06-15] MEDS ORDERED: METOPROLOL TARTRATE 25 MG TAB PO SCH (21:00)
--- NOTE | 2017-06-15 21:17 | HHI.PR ---
Subjective Subjective Notes no issues, multiple bms, tolerating diet, ambulating Objective Vitals/I&O Vital Signs Date Time Temp Pulse Resp B/P Pulse Ox O2 Delivery O2 Flow Rate FiO2 06/15/17 20:39 Room Air 06/15/17 16:00 97.0 103 18 142/80 93 06/13/17 08:10 21 06/12/17 08:02 2.00 Cardiovascular: Irregular Lungs: Clear Abdomen: Other (soft incisional pain, no infection) A/P Assessment and Plan s/p lap ventral hernia repair PLAN eval by cardio ok to d/c diet as tolerated pain control bowel regimen d/c planning today Humberto Mcconnell MD Jun 15, 2017 21:17
--- NOTE | 2017-07-04 22:20 | MP ---
cc: TRESA JONES DATE OF SURGERY 06/11/17 1945 PREOPERATIVE DIAGNOSIS Ventral hernia POSTOPERATIVE DIAGNOSIS Ventral hernia. PROCEDURE Laparoscopic repair of ventral hernia with mesh 20 x 25 echo deployment system, extensive lysis of adhesions. SURGEON Brianda Jones MD [employer] Ermelinda Mcconnell MD. Dr. Mcconnell's assistance was necessary for the procedure due to the complexity of the procedure due to extensive adhesions of the procedure. Dr. Mcconnell was utilized for manipulation and closure during the procedure. The staff physical therapy assistant provided by [employer] was utilized on the back table. ANESTHESIA General endotracheal anesthesia ESTIMATED BLOOD LOSS Less than 50 mL. FINDINGS Extensive adhesions of small bowel to abdominal wall as well as interloop adhesions. There were multiple small defects to the patient's midline. As a result, a large 20 x 25 piece of mesh was used to cover the defect. SPECIMENS None COMPLICATIONS None OPERATION The patient was brought to the operating room and placed on the operating table in supine position. Bilateral sequential inflation device placed on lower extremities. General anesthesia instituted. Parrish catheter placed. Antibiotics initiated. The abdomen was prepped and draped sterilely. Ioban was then placed over the abdomen. A point in the patient's right upper quadrant was anesthetized with 0.25% Marcaine with epinephrine. Incision was made, 5 mm OptiView port was placed under direct vision. Under direct vision, additional 5 mm port was placed in the right lower quadrant. The abdominal cavity was inspected. There was extensive adhesions in the midline. Sharp dissection was undertaken in the suprapubic region. Once this was performed, an additional 5 mm port was placed in the suprapubic region. Once this area was cleared, a point in the left lower quadrant was identified. An additional port was placed. Attention was then placed on taking down adhesions Using meticulous sharp dissection, in the midline. Approximately an hour and a half of dissection was undertaken before the area was cleared for mesh placement. Once the abdominal wall was cleared, a ventral light EXT echo deployment system 20 x 25 mesh was opened on the back table. It was then placed into the abdominal cavity and brought up to the abdominal wall to cover all the midline defects. The mesh was then secured to the abdominal wall using secure strap. The four points of the mesh were further secured by transabdominal sutures of 0 Vicryl. The mesh appeared to lay well without wrinkles. At this point, the abdominal cavity was inspected. There was no hemorrhage. CO2 was released. All additional ports removed. All skin incisions were closed with 4-0 Monocryl. The abdominal wall was cleaned and a sterile dressing placed. The patient was awakened and taken to recovery room. MD MAURICE Antoine/ /9:48 AM /10:06 PM [email or web address]
--- NOTE | 2017-07-17 15:43 | HHI.DS ---
Discharge Summary Admission Date Jun 11, 2017 at 19:24 Discharge Date: Jun 15, 2017 Admitting Diagnosis Brief History 72 year old male s/p lap ventral hernia repair PE at Discharge Alert and awake Cardio: RRR Resp: CTAB Abd; incision c/d/i Hospital Course 72 year old male s/p lap ventral hernia repair. The patient was able to tolerate a regular diet. The patient's pain was controlled using oral pain medications. The patient was DC'd with instructions to follow-up in the office as indicated on the discharge information. \ Pt Condition on Discharge: Good Discharge Disposition: Discharge Home Discharge Instructions DIET: Follow Instructions for: As Tolerated, No Restrictions Activities you can perform: See Additionl Instruction Other Activity Instructions: no heavy lifting >15 lbs Snehal Jaramillo Jul 17, 2017 15:43
== END 2017-06-15 21:53 | disposition home or self-care (01) ==
LOC: HSDC 06:09 → HSDI 12:50 → UNDOADMIN 12:50 → N07B 15:40 → HSDI 15:40 → N07B 15:40 → HSDC 19:23 → N07B 19:24
PROVIDERS: ADMIT Surgery; ATTEND Surgery
DX: K43.9 Ventral hernia without obstruction or gangrene (principal); I48.2 Chronic atrial fibrillation; J44.9 Chronic obstructive pulmonary disease, unspecified; I10 Essential (primary) hypertension; D69.6 Thrombocytopenia, unspecified; G47.30 Sleep apnea, unspecified; Z85.038 Personal history of other malignant neoplasm of large intestine; Z79.01 Long term (current) use of anticoagulants; Z79.899 Other long term (current) drug therapy
CPT/HCPCS: 00752; 49652; 80053; 83735; 85025; 93005; 94150; C1781; G0378; J0131; J0690; J1650; J2175; J2270; J2405; J2710; J3010; J3480; J7120; J1170

== ENCOUNTER 2017-07-11 12:12 | Day surgery (SDC) | payer MEDICARE ==
[~2017-07-11 12:12] MED LIST changes: +ALBU.5I NEB
[2017-07-11] MEDS ORDERED: NS 1000 ML IV SCH (13:30)
[2017-07-11] MEDS ORDERED: ceFAZolin 2 GM PREMIX 50 ML IV SCH (13:30)
[2017-07-11] MEDS ORDERED: MUPIROCIN 2% OINT 1 APPLIC/GM SYR NASAL SCH (13:30)
[2017-07-11] MEDS ORDERED: CHLORHEXIDINE GLUCONATE 2 % 1 PACK (2 CLOTHS) TOPICAL SCH (13:30)
[2017-07-11] MEDS ORDERED: POVIDONE IODINE 5% (ANTISEPSIS KIT) 4 APPLICATIONS EACH NARE SCH (13:30)
[2017-07-11] MEDS ORDERED: MIDAZOLAM HCL 2 MG/2 ML VIAL ONE (15:33)
[2017-07-11] MEDS ORDERED: HYDR-3366 PO (17:33)
[2017-07-11] MEDS ORDERED: CEPH-460 PO (17:33)
--- NOTE | 2017-07-14 09:35 | MP ---
cc: BRANDON DAMON M.D. DATE OF SURGERY: 07/11/2017 PROCEDURE Loop recorder insertion. INDICATION Mr. Charles is a 71-year-old gentleman with a history of recurrent syncope and previous lead fracture who will undergo loop recorder insertion. The risks, the nature and the benefit of the procedure were clearly stated to him. The risks include pneumothorax, cardiac perforation, stroke, need for open heart surgery and even . The patient understood and agreed to proceed. DETAILS OF PROCEDURE After written informed consent was obtained, the patient was evaluated in the DOC Unit. Conscious sedation was initiated and maintained throughout the procedure using intravenous Versed and fentanyl. Once sedation was verified, the left parasternal area was anesthetized with 2% Xylocaine. Using a cutter a less than a centimeter incision was made. Subsequently the loop was inserted under the skin. After adequate sensing was obtained, the border was re-approximated using Dermabond and Steri-Strips. No incident report. The patient tolerated the procedure. Blood loss minimal. IMPLANTED HARDWARE The implanted loop recorder is a Reveal model Reveal, serial number [id number]. Sensing is at 0.18 millivolts. Settings are darcy under 40, tachy over 160. CONCLUSION Successful loop recorder insertion. COMMENT/RECOMMENDATION The patient is going to be observed and discharged home later today. Brandon Damon MD HS/BT /4:32 PM /9:19 AM
== END 2017-07-11 18:18 | disposition home or self-care (01) ==
LOC: HDIC 12:12 → HCAT 12:12
PROVIDERS: ATTEND Internal Medicine Interventional Cardiology
DX: R55 Syncope and collapse (principal); I48.91 Unspecified atrial fibrillation; R00.2 Palpitations; I10 Essential (primary) hypertension; Z79.01 Long term (current) use of anticoagulants; Z79.891 Long term (current) use of opiate analgesic; Z79.51 Long term (current) use of inhaled steroids; Z79.899 Other long term (current) drug therapy
CPT/HCPCS: 33282; C1764; J0690; J2250; J3010; J7030

== ENCOUNTER 2017-11-24 14:58 | Day surgery (SDC) | payer MEDICARE ==
[~2017-11-24] VITALS: Ht 177.8 cm; Wt 111.6 kg
[~2017-11-24 14:58] MED LIST changes: -CALC600T25 PO; +CALC600T5 PO; +CEPH-460 PO; +DEXAMETHASONE SOD PHOS 4 MG/ML VIAL IV ONE; +GLYCOPYRROLATE 1 MG/5 ML SYRINGE IV PUSH ONE; +HYDR-3366 PO; +LIDOCAINE HCL 1% PF 5 ML SYRINGE OTHER ONE; -LORA-373 PO; +LORA0.5T PO; +METOPROLOL TARTRATE 5 MG/5 ML VIAL IV PUSH ONE; +NEOSTIGMINE 5 MG/5 ML SYRINGE IV PUSH ONE; +ONDANSETRON HCL 4 MG/2 ML VIAL IV ONE; +PHENYLEPH/NS 1000 MCG/10 ML SYR IV ONE; +PROPOFOL 200 MG/20 ML AMP IV ONE; +ROCURONIUM INJ 50 MG/5 ML SYRINGE IV PUSH ONE; +ePHEDrine/NS 25 MG/5 ML SYRINGE IV ONE
[2017-11-24 15:37] VITALS: BP 141/91; PULSE 101; RESP 18; TEMP 97.9; O2SAT 94
[2017-11-24] MEDS ORDERED: APLI5INJ2 SQ (15:55)
[2017-11-24] MEDS ORDERED: SACC1CAP3 PO (15:55)
[2017-11-24] MEDS ORDERED: OMEGCAP PO (15:55)
[2017-11-24] MEDS ORDERED: NORV2.5T PO (15:55)
[2017-11-24 16:04] LABS: AUTOMATED NEUTROPHIL # 5.7 TH/MM3 (1.8-7.7); BASOPHIL % 0.3 % (0.0-2.0); EOSINOPHIL # 0.1 TH/MM3 (0-0.4); EOSINOPHIL % 1.7 % (0.0-4.0); HEMATOCRIT 50.4 % (39.0-51.0); LYMPH % 15.9 % (9.0-44.0); LYMPHOCYTE # 1.3 TH/MM3 (1.0-4.8); MEAN CELL VOLUME 91.7 FL (80.0-100.0); MEAN CORPUSCULAR HEMOGLOBIN 30.9 PG (27.0-34.0); MEAN CORPUSCULAR HGB CONC 33.7 % (32.0-36.0); MEAN PLATELET VOLUME 9.4 FL (7.0-11.0); MONO % 13.7 % (0.0-8.0); MONOCYTE # 1.2 TH/MM3 (0-0.9); NEUT % 68.4 % (16.0-70.0); PLATELET COUNT 155 TH/MM3 (150-450); RED BLOOD COUNT 5.49 MIL/MM3 (4.50-5.90); RED CELL DISTRIBUTION WIDTH 15.5 % (11.6-17.2); WHITE BLOOD COUNT 8.4 TH/MM3 (4.0-11.0)
[2017-11-24 16:10] LABS: INTERNATIONAL NORMALIZED RATIO 1.1 RATIO; PROTHROMBIN TIME - PATIENT 11.1 SEC (9.8-11.6)
[2017-11-24 16:18] LABS: CALCIUM 9.6 MG/DL (8.5-10.1)
[2017-11-24] MEDS ORDERED: HEPARIN-NS/PF INJ 2,000 ML ONE (16:59)
[2017-11-24] MEDS ORDERED: ISOPROTERENOL HCL 1 MG/5 ML AMP ONE (17:01)
[2017-11-24] MEDS ORDERED: PROTAMINE SULFATE 50 MG/5 ML VIAL ONE (17:01)
[2017-11-24] MEDS ORDERED: HEPARIN-D5W 25,000 U/250 ML 250 ML ONE (17:01)
[2017-11-24] MEDS ORDERED: HEPARIN SODIUM - IV 10,000 UNITS/10 ML VIAL ONE (17:01)
[2017-11-24] MEDS ORDERED: LEVOFLOXACIN 500 MG PREMIX INJ 100 ML IV ONE (17:11)
[2017-11-24] MEDS ORDERED: LIDOCAINE HCL 1% 50 ML VIAL INFIL PRN (19:30)
[2017-11-24] MEDS ORDERED: ONDANSETRON HCL 4 MG/2 ML VIAL IV PUSH PRN (19:30)
[2017-11-24] MEDS ORDERED: SODIUM CHLOR 0.9% 250 ML INJ 250 ML IV PRN (19:30)
[2017-11-24] MEDS ORDERED: ATROPINE SULFATE 1 MG/ML VIAL IV PUSH PRN (19:30)
[2017-11-24] MEDS ORDERED: oxyCODONE/ACETAMINOPHEN 5 MG/325 MG TAB PO PRN ×2 (19:30)
[2017-11-24] MEDS ORDERED: METOCLOPRAMIDE HCL 10 MG/2 ML VIAL IV PUSH PRN (19:30)
[2017-11-24] MEDS ORDERED: LORazepam 2 MG/ML VIAL IV PUSH PRN (19:30)
[2017-11-24] MEDS ORDERED: BACITRACIN OINT 0.9 GM PKT TOP ONE (19:30)
[2017-11-24] MEDS ORDERED: MIDAZOLAM HCL 2 MG/2 ML VIAL ONE (19:34)
--- NOTE | 2017-11-24 20:13 | CATHPROC ---
[employer] HIS Report Study Information Study Number Admission Scheduled Start Study Start [id number] Nov 24 2017 2:58PM 11/24/2017 Nov 24 2017 4:49PM [place] Service Electrophysiology Study Admit Source Facility Department Other [facility] - Manager Combination Physician and Clinical Staff Initial Juvencio Barbour Director Supply Marcel Anders,RT(R) Other Anesthesia, MANAGER INTERMEDIATE Recorder Tiffanie Oleary,EVELYN Recorder Shavon Goldman BSN Scrub Jenelle Sanders,RT(R) TECH2 Procedures Performed Procedure Location (Site) Vessel Name Ablation Procedure ICE CATHETER INSERT RA Atruim RF Ablation LT. ATRIUM LT. ATRIUM Equipment Time Professor Of Voice Description Size Mfg Part Number Used/Scraped NEEDLE, TRANSSEPTAL NRG 98 [id number] 17:21 [facility] Used C1 *[id number] [employer]/ EP [id number] 17:21 KIT, TRANSDUCER / AFIB Used PACER *[id number] CATHETER, TACTICATH ABLAT BUNDLE 17:21 BUN[facility] [facility] Used 65 BUNDLE *[id number] BUNDLE [id number] CATHETER, FR7 OPTIMA SPIRAL 17:21 BUND[employer] FR7 *[id number]- Used BUNDLE BUNDLE [id number] 18:02 [employer]UN[employer] CATHETER, JSN, QUAD BUNDLE FR 5 *[id number]- Used BUNDLE [id number] 17:21 BUND[employer] CATHETER, JSN, QUAD BUNDLE FR 5 *[id number]- Used BUNDLE [id number] 17:21 BUNDLE-[employer] CATHETER, JSN, QUAD BUNDLE FR 5 *[id number]- Used BUNDLE [id number] SET, COOL POINT TUBING 17:21 BUNDLE-[employer]IE *[id number]- Used BUNDLE BUNDLE SHEATH, FR8.5 STEERABLE SM 17:21 BUNDLE-[employer] 71CM [id number] Used 71CM BUNDLE COVER, TRANSDUCER CABLE 612-113 17:21 [employer] Used ACUNAV *[id number] 17:21 CORDIS/PACER SHEATH, FR10 JULIO CESAR 11CM FR 10 Used *[id number] 17:21 CORDIS/PACER SHEATH, FR9 JULIO CESAR 11CM FR 9 [id number] Used [id number] 17:21 [employer] PACK, CCL CUSTOM * Used *[id number] 17:21 MEDLINE PACER BARBA, LIMB * 2530 *[id number] Used [id number] 17:21 [facility] SHEATH, FR4.5 PRELUDE 11CM FR 4.5 Used [id number] 17:21 NAMIC TUBING, HIGH PRESSURE 48" 48" Used *[id number] [id number] 17:21 NAMIC TUBING, HIGH PRESSURE 48" 48" Used *[id number] 17:21 [facility] [employer] BL[employer]ET,WARM AIR CCL * Used *[id number] 17:21 [facility] MEDICAL ELECTRODE KIT, RUBIO X SURFACE * Used *[id number] 928927 17:21 [facility] MEDICAL SHEATH, EPS, FR6 FAST CATH FR 6 Used *[id number] 17:21 [facility] MEDICAL SHEATH, EPS, FR7 FAST CATH FR 7 [id number] Used [id number] 17:21 [facility] MEDICAL SHEATH, EPS, FR8 FAST CATH FR 8 Used *[id number] CATHETER, ACUNAV FR10 ICE [id number] 18:06 NOHELIA FR 10 Used (NOHELIA) *[id number] [facility] PAD, ELECTROSURGICAL 17:21 * [id number] *[id number] Used SURGICAL GROUNDING (BLUE) Labs Hgb (g/dl) Hct (%) RBC (MIL/MM3) WBC (l/cumm) Platelets (thousands) 11.60-17.00 35.00-51.00 4.00-5.90 4.00-11.00 150.00-450.00 17.0 50.4 5.4 8.4 155 Glucose (mg/dl) BUN (mg/dl) Creatinine (mg/dl) BUN:Creatinine (1:x) 74.00-106.00 7.00-18.00 0.50-1.30 10.00-20.00 97 25 1.0 25 Na (meq/l) K (meq/l) Cl (meq/l) CO2 (mmol/L) Ca (mg/dl) 136.00-145.00 3.50-5.10 98.00-107.00 21.00-32.00 8.50-10.10 137 4.1 103 26 9.6 PT (sec) PTT (sec) INR (PTT:PT) 9.80-11.60 24.30-30.10 0.90-1.10 11.1 27.5 1.1 Medication Medication Total Dose (Bolus/Oral) Medication Total Dosage/Unit 1% XYLOCAINE 40 mL HEPARIN 65200 units METOPROLOL 5 mg PROTAMINE 60 mg Medications (Bolus/Oral) Medication Time Given Dosage/Unit Administered By Reason 1% XYLOCAINE 11/24/2017 5:50:48 PM 20 mL Juvencio Akins 20 mL 1% XYLOCAINE given in lab by Juvencio Akins in Left Groin via Subcutaneous. Ordered by Tra Akins 1% XYLOCAINE 11/24/2017 5:53:41 PM 20 mL Juvencio Akins 20 mL 1% XYLOCAINE given in lab by Juvencio Akins in Right Groin via Subcutaneous. Ordered by Carlene Akins. HEPARIN 11/24/2017 6:06:22 PM 28813 units Anesthesia, MANAGER INTERMEDIATE 99143 units HEPARIN given in lab by Anesthesia, MANAGER INTERMEDIATE in Left Antecubital via Peripheral IV. Ordered b Juvencio Benites. HEPARIN 11/24/2017 6:22:16 PM 4000 units Anesthesia, MANAGER INTERMEDIATE 4000 units HEPARIN given in lab by Anesthesia, MANAGER INTERMEDIATE in Right Forearm via Peripheral IV. Ordered by Juvencio Quick. HEPARIN 11/24/2017 6:50:02 PM 4000 units Anesthesia, MANAGER INTERMEDIATE 4000 units HEPARIN given in lab by Anesthesia, MANAGER INTERMEDIATE in Right Forearm via Peripheral IV. Ordered by Juvencio Quick. METOPROLOL 11/24/2017 7:12:39 PM 5 mg Anesthesia, MANAGER INTERMEDIATE As per physicians verb al order 5 mg METOPROLOL given in lab by Anesthesia, MANAGER INTERMEDIATE via Peripheral IV. Ordered by Juvencio Akins. Reason: As per physicians verbal order. PROTAMINE 11/24/2017 7:24:19 PM 40 mg Anesthesia, MANAGER INTERMEDIATE As per physicians verb al order 40 mg PROTAMINE given in lab by Anesthesia, MANAGER INTERMEDIATE via Peripheral IV. Ordered by Juvencio Akins. Reason: As per physicians verbal order. PROTAMINE 11/24/2017 7:36:22 PM 20 mg Anesthesia, MANAGER INTERMEDIATE 20 mg PROTAMINE given in lab by Anesthesia, MANAGER INTERMEDIATE via Peripheral IV. Ordered by Juvencio Akins. Medication (Drip) Medication Time Given Dosage/Unit Concentration/Unit Diluent (ml) Solution HEPARIN DRIP 11/24/2017 6:23:29 PM 1000 units/hr 19583 units 250 D5W 1000 units/hr HEPARIN DRIP given in lab by Anesthesia, MANAGER INTERMEDIATE in Right Hand via Peripheral IV. Pump/Dri p Flow = 10 ml/hr using [place] [address] units in 250 ml. Ordered by Juvencio Akins. ISUPREL 11/24/2017 7:00:03 PM 20 mcg/min 1 mg 250 NaCl .9 20 mcg/min ISUPREL given in lab by Anesthesia, MANAGER INTERMEDIATE via Peripheral IV. Pump/Drip Flow = 300 ml/hr usi ng NaCl .9 with a concentration of 1 mg in 250 ml. Ordered by Juvencio Akins. LEVAQUIN 11/24/2017 5:20:41 PM 100 mL/hr 500 100 NaCl .9 100 mL/hr LEVAQUIN given by Anesthesia, MANAGER INTERMEDIATE in Right Forearm via Peripheral IV. Pump/Drip Flow = 0 m l/hr using NaCl .9 with a concentration of 500 in 100 ml. Ordered by Juvencio Akins. Initial Case Assessment Cardiovascular HR Rhythm NIBP Chest Pain 91 afib 138/80 0 Edema Present Skin color Skin None Normal Warm Dry Circulatory - Right Pulses Dorsalis Pedis 3 Scale (0,1,2,3,4,d) Circulatory - Left Pulses Dorsalis Pedis 3 Scale (0,1,2,3,4,d) Neurological State Oriented to time-place- Alert Moves all extremities person Respiration - General Respiration Rate SpO2 (%) O2 (lpm) (B/min) 18 97 0 Final Case Assessment Cardiovascular HR Rhythm NIBP Chest Pain 85 sr 114/68 0 Edema Present Skin color Skin None Normal Warm Dry Circulatory - Right Pulses Dorsalis Pedis 3 Scale (0,1,2,3,4,d) Circulatory - Left Pulses Dorsalis Pedis 3 Scale (0,1,2,3,4,d) Circulatory - Lower Extremities Color Lower Right Color Lower Left Normal Normal Neurological State Unresponsive Comment: under sedation Respiration - General Respiration Rate SpO2 (%) O2 (lpm) (B/min) 14 97 50 Respiration - Ventilator Type Intubation Type ET(oral) Chronological Log Time Study Chronological Log 16:56:14 Patient arrived via Bed. 16:56:15 Patient Name, D.O.B, / Armband Verified By R.N. 16:56:16 Consent signed by the physician and the patient and verified by the Manager Combination staff. 16:56:18 Pre-op and post- op instructions given; patient acknowledges understanding of instructions. 16:56:24 Anesthesia at bedside. Assumes care of patient. See anesthesia flowsheet for Q5min VS. Tommy 16:58:33 Patient has been NPO for More than 6Hrs. 16:58:33 Skin Breakdown- none per patient 16:58:34 Patient Warmer Placed on the Table. 16:58:34 Disposable Defibrillator Pads Placed On Patient. 16:58:35 Xochilt Prominences Protected 16:58:37 A # 20 IV was noted in the Forearm (right). 0.9ns kvo 16:58:38 A # 20 IV was noted in the Antecubital (left). 0.9ns kvo 16:58:39 History and physical on the chart or being dictated. Assessment: Initial Case, HR=91 BPM, Rhythm=afib, ZBAC=199/80 mmhg, Chest Pain=0, Edema=None, Color=Normal, Skin = Warm, Dry Right Pulses: Jim Ped=3 17:08:28 Left Pulses: Jim Ped=3 Neurological: State=Alert, Ox3, RAMIREZ Respiration: Resp=18 B/min, SpO2=97 %, O2=0 lpm 17:18:17 Table restraints applied according to hospital policy 100 mL/hr LEVAQUIN given by Anesthesia, MANAGER INTERMEDIATE in Right Forearm via Peripheral IV. Pump/Drip Flow = 0 ml/hr using 17:20:41 NaCl .9 with a concentration of 500 in 100 ml. Ordered by Juvencio Akins. 17:22:31 Reference ECG taken 17:24:09 Anesthesiologist present for intubation. 14 fr bocanegra inserted sans difficulty. Clear yellow urine obtained. 17:32:17 Bilateral groins prepped with 2% chlorhexidine, and draped after a 3 minute waiting time. 17:38:20 MD arrived. Time Out. Correct patient, procedure, procedure equipment, site and side verified with physicia n present. Time 17:47:09 concurred by MD, individual staff and MANAGER INTERMEDIATE. Time Out #2 - Consents verified, patient in correct position, all results are labled and displa yed, safety precautions 17:47:10 taken, antibiotics administered. Time out concurred by MD, individual staff and MANAGER INTERMEDIATE in procedu re 17:47:12 Case Start 17:47:49 MIKE IN PROGRESS 17:50:31 MIKE COMPLETE 17:50:48 20 mL 1% XYLOCAINE given in lab by Juvencio Akins in Left Groin via Subcutaneous. Ordered by Juvencio Akins. 17:51:29 Vascular access was obtained in the Fem Vein (left). 17:51:44 Vascular access was obtained in the Fem Vein (left). 17:51:45 Vascular access was obtained in the Fem Art (left). 17:52:04 Vascular access was obtained in the Fem Vein (left). A SHEATH, FR4.5 PRELUDE 11CM FR 4.5 was advanced into the Fem Art (left) using the Modified Fiona leandro technique. 17:52:06 CONNECTED TO 0.9 NS PRESSURE BAG 17:52:50 A SHEATH, EPS, FR6 FAST CATH FR 6 was advanced into the Fem Vein (left) using the Modified Seldinger technique. 17:53:04 A SHEATH, EPS, FR7 FAST CATH FR 7 was advanced into the Fem Vein (left) using the Modified Seldinger technique. 17:53:10 A SHEATH, FR10 JULIO CESAR 11CM FR 10 was advanced into the Fem Vein (left) using the Modified S eldinger technique. 17:53:41 20 mL 1% XYLOCAINE given in lab by Juvencio Akins in Right Groin via Subcutaneous. Ordered b Juvencio Benites. 17:56:57 Vascular access was obtained in the Fem Vein (right). 17:57:00 A SHEATH, EPS, FR8 FAST CATH FR 8 was advanced into the Fem Vein (right) using the Modified Seldinger technique. A CATHETER, JSN, QUAD BUNDLE FR 5 was advanced vis Fem Vein (left) and placed in the CS. Placem ent was visually 17:59:07 confirmed under fluoroscopy. A CATHETER, JSN, QUAD BUNDLE FR 5 was advanced vis Fem Vein (left) and placed in the HIS. Place ment was 18:01:00 visually confirmed under fluoroscopy. 18:02:26 HIS CATHETER REMOVED A CATHETER, JSN, QUAD BUNDLE FR 5 was advanced vis Fem Vein (left) and placed in the HIS. Place ment was 18:02:45 visually confirmed under fluoroscopy. 18:04:12 CATHETER, ACUNAV FR10 ICE (NOHELIA) FR 10 Was Postioned. A SHEATH, FR8.5 STEERABLE SM 71CM BUNDLE 71CM was exchanged in the Fem Vein (right). This was n ecessary in 18:04:38 order to accomodate a larger catheter. 18:05:00 BAYLIS IN 18:06:14 THE BAYLIS was advanced to the right atrium and passed through the septal wall to the left atrium. 18:06:20 BAYLIS REMOVED 18:06:22 49303 units HEPARIN given in lab by Anesthesia, MANAGER INTERMEDIATE in Left Antecubital via Peripheral IV. Ordered by Juvencio Akins. A CATHETER, FR7 OPTIMA SPIRAL BUNDLE FR7 was advanced vis Fem Vein (right) and placed in the LA . Placement 18:11:34 was visually confirmed under fluoroscopy. 18:14:11 MAPPING IN PROGRESS 18:18:33 Activated Clotting Time Drawn 18:21:30 ACT (Normal Range 90-180) = 276 18:22:16 4000 units HEPARIN given in lab by Anesthesia, MANAGER INTERMEDIATE in Right Forearm via Peripheral IV. Ord ered by Juvencio Akins. 1000 units/hr HEPARIN DRIP given in lab by Anesthesia, MANAGER INTERMEDIATE in Right Hand via Peripheral IV. Pu mp/Drip Flow = 10 18:23:29 ml/hr [place] [address] units in 250 ml. Ordered by Juvencio Akins. 18:26:02 MAPPING COMPLETE; CATHETER REMOVED A CATHETER, TACTICATH ABLAT 65 BUNDLE was advanced vis Fem Vein (right) and placed in the LA. P lacement was 18:26:18 visually confirmed under fluoroscopy. 18:29:30 RF Ablation of the LT. ATRIUM with a CATHETER, TACTICATH ABLAT 65 BUNDLE. 18:45:02 Activated Clotting Time Drawn 18:49:39 ACT (Normal Range 90-180) = 299 18:50:02 4000 units HEPARIN given in lab by Anesthesia, MANAGER INTERMEDIATE in Right Forearm via Peripheral IV. Ord ered by Juvencio Akins. 18:52:32 ABLATION CONTINUES 18:56:28 Activated Clotting Time Drawn 20 mcg/min ISUPREL given in lab by Anesthesia, MANAGER INTERMEDIATE via Peripheral IV. Pump/Drip Flow = 300 ml/ hr using NaCl .9 19:00:03 with a concentration of 1 mg in 250 ml. Ordered by Juvencio Akins. 19:04:38 ACT (Normal Range 90-180) = 328 19:08:44 Eps in progress. ISUPREL OFF 19:09:42 5 mg METOPROLOL given in lab by Anesthesia, MANAGER INTERMEDIATE via Peripheral IV. Ordered by Juvencio Akins. Suraj wagner: As per 19:12:39 physicians verbal order. 19:18:57 Eps complete. 19:21:21 All Catheter(s) removed without difficulty A SHEATH, FR9 JULIO CESAR 11CM FR 9 was exchanged in the Fem Vein (right). This was necessary in ord er to minimize 19:21:33 site leakage. 19:23:30 PACU called. Spoke to Denilson 19:23:42 Bedside Report will be given. 40 mg PROTAMINE given in lab by Anesthesia, MANAGER INTERMEDIATE via Peripheral IV. Ordered by Hanscy. Suraj Akins wagner: As per 19:24:19 physicians verbal order. 19:29:48 Activated Clotting Time Drawn 19:31:57 ACT (Normal Range 90-180) = 210 19:36:22 20 mg PROTAMINE given in lab by Anesthesia, MANAGER INTERMEDIATE via Peripheral IV. Ordered by Neil Akins 19:40:28 Activated Clotting Time Drawn 19:43:16 ACT (Normal Range 90-180) = 178 19:43:56 Right groin venous Sheath removed; pressure applied to access site by DB. 19:44:09 Left fem arterial Sheath removed; pressure applied to access site by HH. 19:55:43 Left fem venous Sheaths removed; pressure applied to access site by HH. Assessment: Final Case, HR=85 BPM, Rhythm=sr, PSHR=421/68 mmhg, Chest Pain=0, Edema=None, [place] r=Normal, Skin = Warm, Dry Right Pulses: Jim Ped=3 Left Pulses: Jim Ped=3 19:57:19 Lower Right Extremities: Color=Normal Lower Left Extremities: Color=Normal Neurological: State=Unresponsive, Comment=under sedation Respiration: Resp=14 B/min, SpO2=97 %, O2=50 lpm, Type=ET(Oral) 20:00:00 Sterile dressing applied to right groin site. Site wnl. 20:10:00 Sterile dressing applied to left groin site. Site wnl 20:10:34 Case End 20:10:52 No case complications noted. 20:10:58 Cine recording checked. 20:11:07 Defibrillator and ground pads removed. Skin intact. 20:12:35 Defibrillator and ground pads removed. Skin intact. 20:12:37 Patient moved to stretcher 20:13:07 Ablation procedure performed: AFIB. 20:13:12 EP Procedure was performed. End Study - Contrast Media Used In Study Contrast Total Opened (mL) Total Used (mL) Total Wasted (mL) Unspecified 0 0 0 End Study - Maximum Contrast Load Max Contrast Load (mL) 552.0 End Study - Radiation Exposure Fluoro Time (minutes) 5.9 End Study - Patient Disposition Complications Transferred To Interventional Outcome No Telemetry Bed successful
[2017-11-24] MEDS ORDERED: DOFETILIDE 500 MCG CAP PO SCH (21:00)
[2017-11-24] MEDS ORDERED: DO NOT ADM ANY ANTICOAGULANT DRUGS PRN (21:00)
[2017-11-24] MEDS ORDERED: PRASTERONE 25 MG PO SCH (21:00)
[2017-11-24 21:20] VITALS: BP 123/81; PULSE 76; RESP 16; TEMP 97.9; O2SAT 97
[2017-11-24 22:00] VITALS: PULSE 76
[2017-11-24] MEDS: APIXABAN 5 MG TABLET PO SCH (22:04)
[2017-11-24] MEDS: METOPROLOL TARTRATE 25 MG TAB PO SCH (22:05)
[2017-11-24] MEDS: ENALAPRIL MALEATE 5 MG TAB PO SCH (22:05)
[2017-11-24] MEDS: DOFETILIDE 250 MCG CAP PO SCH (22:06)
[2017-11-24 23:00] VITALS: PULSE 86
[2017-11-24 23:30] VITALS: BP 127/81; PULSE 83; RESP 16; TEMP 97.7; O2SAT 98
[2017-11-25] VITALS (10 sets, daily range): BP systolic 118–122; BP diastolic 68–83; PULSE 67–82; RESP 16–18; TEMP 97.1–98; O2SAT 97–98
[2017-11-25 07:08] LABS: INTERNATIONAL NORMALIZED RATIO 1.1 RATIO; PROTHROMBIN TIME - PATIENT 11.6 SEC (9.8-11.6)
[2017-11-25] MEDS ORDERED: TAMSULOSIN HCL 0.4 MG CAP PO SCH (09:00)
[2017-11-25] MEDS ORDERED: lamoTRIgine 25 MG TAB PO SCH (09:00)
[2017-11-25] MEDS ORDERED: amLODIPine BESYLATE 5 MG TAB PO SCH (09:00)
[2017-11-25] MEDS: APIXABAN 5 MG TABLET PO SCH (09:07)
[2017-11-25] MEDS: DOFETILIDE 250 MCG CAP PO SCH (09:07)
[2017-11-25] MEDS: ENALAPRIL MALEATE 5 MG TAB PO SCH (09:07)
[2017-11-25] MEDS: METOPROLOL TARTRATE 25 MG TAB PO SCH (09:08)
--- NOTE | 2017-11-25 13:53 | PD.CARD ---
Atrial Fibrillation Ablation PROCEDURE DATE: Nov 24, 2017 PROCEDURES PERFORMED: 1. Electrophysiology study on Isuprel infusion 2. CS cannulation 3. 3-D mapping 4. Transseptal approach 5. Right and left heart catheterization 6. Intracardiac echo 7. Radiofrequency ablation of atrial fibrillation 8. Pulmonary vein isolation 9. Posterior wall ablation 10. Mitral valve isolation 11. Mitral line creation 12. Left atrial tachycardia ablation 13. Roof line creation 14. Floor line creation 15. Anterior wall ablation INDICATIONS FOR THE PROCEDURE Mr. Charles is a 72-year-old male with atrial fibrillation, previous ablation 4 years ago, very symptomatic, on anticoagulation, admitted for electrophysiology study and ablation. The risks, the nature and the benefits of the procedure were clearly stated to him. The risks include pneumothorax, cardiac perforation, stroke, need for open heart surgery and even . The patient understood and agreed to proceed. DESCRIPTION OF THE PROCEDURE IN DETAIL As written informed consent was obtained prior to esophageal echocardiogram, the patient was kept on the table where he was prepped and draped in the usual sterile fashion. Conscious sedation was initiated and maintained throughout the procedure by the anesthesiologist. Once sedation was verified, the right and left inguinal areas were anesthetized with 2% Xylocaine. Using modified Seldinger technique, the left femoral vein was cannulated on three occasions, three guidewires were advanced. Over the wire a 6, 7 and a 10-Turkmen Hemaquet were advanced. Then the left femoral artery was cannulated on one occasion, one guidewire was advanced. Over the wire a 4-Turkmen Hemaquet was advanced. Then the right femoral vein was cannulated on one occasion, one guidewire was advanced. Over the wire a 8-Turkmen Hemaquet was advanced. Then under fluoroscopic guidance through the 6 and 7-Turkmen Hemaquet, two 5-Turkmen Mary Kate curved quadripolar electrophysiology catheters were advanced and placed around the His as well as coronary sinus. Basic interval was measured. The patient was in atrial fibrillation, left atrial tachycardia. Through the 10 -Turkmen Hemaquet, a Cordis Wesley AcuNav intracardiac echo catheter was advanced and placed at the right atrium. Multiple view was obtained. There is pericardial effusion, pulmonary vein was seen, atrial septal was visualized. Then the 8-Turkmen Hemaquet in the right femoral vein was exchanged for Agilis transseptal sheath that was placed all the way to the superior vena cava. Through the sheath a Chante needle was advanced, then the sheath, the dilator and the needle were progressed until foci engaged. Once engaged, the needle was advanced. RF was delivered for 2 seconds. I was able to cross into the left atrium. Once the needle crossed, the dilator was advanced. Once the dilator crossed, the sheath was advanced. Once the sheath crossed, the dilator and the needle were removed. At this point I did flood the system and fluid movement was seen in the left atrium the indicates the sheath is in good position. The patient already received 10,000 units of heparin. The goal is to keep an ACT around 350 during ablation. Then through the sheath a [place] 20 pulse circumferential catheter was advanced. Using HotDesk endocardial solution mapping system, a two-dimensional configuration of the left atrium was obtained. Points were taken at the left superior and inferior veins, right superior and inferior veins, mitral valve, and appendages. Then through the sheath a [place] TactiCath 65cm 3.5mm irrigated tipped mapping and radiofrequency ablation catheter was advanced. Esophageal probe was placed temperature monitoring during ablation. When it increased to 0.5 degrees Celsius above baseline, I moved to a different area of the atrium. First I did isolate the left superior and inferior vein. Posterior was ablated. Then a roof line was created, a floor line was created, a mitral line was isolated, then the mitral valve was isolated. At that point the patient was in left atrial tachycardia. I did create a line from the floor to the roof area, passing by the left atrial appendage. Tachyarrhythmia cycle length prolonged. Then the right superior and inferior veins were isolated. Atrial tachycardia was remapped. Early activation by the left atrial appendage. RF was delivered. CL prolonged and tachy terminated. Patient was back into sinus rhythm. did remap the atrium. There is no significant signal in the atrium. At this point I decided to proceed with cardioversion. A 200 sync biphasic joule was delivered that converted the patient into sinus rhythm. Was observed. Back again into arrhythmia. Ablation at the same spot performed. Patient back into sinus rhythm. At that point I did advance the circumferential catheter again into the vein. There was no signal into the vein, pacing from the vein showed no conduction to the atrium. Isuprel infusion was initiated at 10 mcg for over 10 minutes. No tachyarrhythmia was induced, post Isuprel no tachyarrhythmia was induced. At that point the procedure was complete. All catheters were removed , atrial septal sheath was exchanged for 9-Turkmen Hemaquet, intracardiac echo showed no pericardial effusion. There is still good flow in the pulmonary vein. The patient is going to be transferred to the recovery room. No incident report. The patient tolerated the procedure. Blood loss was minimal. FINDINGS 1. Electrocardiogram: At baseline the patient was in atrial fibrillation, post procedure the patient was in sinus rhythm. 2. Basic interval: Base cycle length was around 500. Post ablation she was around 940 milliseconds. AH at 210 and HV at 52 milliseconds. 3. Tachyarrhythmia: Atrial fibrillation was mapped and ablated. Atrial tachycardia was ablated. The ablation was successful. CONCLUSION Successful electrophysiology study, mapping, radiofrequency ablation of atrial fibrillation, left atrial tachycardia, pulmonary vein isolation, posterior ablation, mitral valve isolation, mitral line creation, roof line creation, floor line creation, left atrial tachycardia ablation. COMMENTS AND RECOMMENDATIONS The patient is going to be transferred to the telemetry unit. Will be observed and when stable can be discharged home. Juvencio Akins MD Nov 25, 2017 13:53
--- NOTE | 2017-11-25 13:56 | HHI.PR ---
Subjective Remarks Feeling way better Objective Vital Signs Date Time Temp Pulse Resp B/P (MAP) Pulse Ox O2 Delivery O2 Flow Rate FiO2 11/25/17 11:48 70 11/25/17 08:00 97.1 79 18 120/73 (89) 97 11/25/17 08:00 80 11/25/17 06:00 76 11/25/17 05:00 67 11/25/17 04:00 68 11/25/17 03:00 68 11/25/17 03:00 97.5 73 16 122/83 (96) 97 11/25/17 02:00 72 11/25/17 01:00 69 11/25/17 00:00 75 11/24/17 23:30 97.7 83 16 127/81 (96) 98 11/24/17 23:00 86 11/24/17 22:00 76 11/24/17 21:20 76 11/24/17 21:20 97.9 76 16 123/81 (95) 97 11/24/17 21:00 97.8 84 20 125/75 (92) 91 Nasal Cannula 2 11/24/17 20:45 86 20 136/75 (95) 94 Nasal Cannula 2 11/24/17 20:27 97.8 86 20 134/86 (102) 96 Nasal Cannula 2 11/24/17 15:37 97.9 101 18 141/91 (108) 94 I/O 11/24/17 11/24/17 11/24/17 11/25/17 11/25/17 11/25/17 06:59 14:59 22:59 06:59 14:59 22:59 Intake Total 960 ml Output Total 825 ml Balance 135 ml Intake Oral 960 ml Output Urine Total 825 ml # Bowel Movements 0 Result Diagram: 11/24/17 1525 11/24/17 1525 Imaging Alert, fully oriented lungs: ventilated Heart: S1, S2 regular, no gallop Abdomen: soft, no mass, obese ext: no Edema Current Medications Medications (Trade) Dose Ordered Sig/Dorothea Route Start Time Stop Time Status Last Admin (Percocet 5-325 Mg) 1 tab Q4H PRN PO 11/24/17 19:30 (Percocet 5-325 Mg) 2 tab Q4H PRN PO 11/24/17 19:30 (Ativan Inj) 0.5 mg UNSCH PRN IV PUSH 11/24/17 19:30 11/25/17 19:29 (Atropine Inj) 0.5 mg UNSCH PRN IV PUSH 11/24/17 19:30 Sodium Chloride 250 ml @ 500 mls/hr ONCE PRN IV 11/24/17 19:30 11/25/17 19:29 (Reglan Inj) 10 mg Q4H PRN IV PUSH 11/24/17 19:30 (Zofran Inj) 4 mg Q4H PRN IV PUSH 11/24/17 19:30 (Xylocaine 1% Inj (50 ml)) 10 ml UNSCH PRN INFIL 11/24/17 19:30 11/25/17 19:29 (Norvasc) 2.5 mg DAILY PO 11/25/17 09:00 11/25/17 09:07 (Eliquis) 5 mg BID PO 11/24/17 21:00 11/25/17 09:07 (Vasotec) 5 mg BID PO 11/24/17 21:00 11/25/17 09:07 (LaMICtal) 25 mg DAILY PO 11/25/17 09:00 11/25/17 09:08 (Lopressor) 25 mg BID PO 11/24/17 21:00 11/25/17 09:08 (Flomax) 0.4 mg DAILY PO 11/25/17 09:00 11/25/17 09:08 Patient Own Medication PT OWN MED: (Praster... BID PO 11/24/17 21:00 Future Hold Miscellaneous Information ALL NURSING DEPARTME... UNSCH PRN .XX 11/24/17 21:00 11/25/17 20:59 (Tikosyn) 500 mcg BID PO 11/24/17 22:00 11/25/17 09:07 Assessment and Plan Problem List: (1) A-fib ICD Codes: I48.91 - Unspecified atrial fibrillation Status: Acute Plan: SP ablation. Doing better feeling well Will be DH Follow up as previously scheduled (2) HTN (hypertension) ICD Codes: I10 - Essential (primary) hypertension Status: Acute Plan: SBP 120 (3) Syncope ICD Codes: R55 - Syncope and collapse Status: Acute Plan: No new episode reported Juvencio Akins MD Nov 25, 2017 13:56
--- NOTE | 2017-11-25 14:48 | EKG ---
Date Performed: 11/24/2017 Time Performed: 20:48:37 PTAGE: 72 years EKG: Sinus rhythm WITH FIRST DEGREE AV BLOCK INFERIOR MYOCARDIAL INFARCTION , PROBABLY OLD ABNORMAL ECG PREVIOUS TRACING : 11/24/2017 15.37 Possible anterior infarct - age undetermined. Compared to p rior tracing no significant change DOCTOR: Mikel Bridges Interpretating Date/Time 11/25/2017 14:48:10
--- NOTE | 2017-11-25 15:44 | EKG ---
Date Performed: 11/25/2017 Time Performed: 05:44:52 PTAGE: 72 years EKG: Probable accelerated junctional rhythm Inferior infarct - age undetermined Possible anterio r infarct - age undetermined Abnormal ECG PREVIOUS TRACING : 11/24/2017 20.48 Compared to prior tracing no significant change DOCTOR: Mikel Bridges Interpretating Date/Time 11/25/2017 15:42:42
--- NOTE | 2017-11-25 16:42 | EKG ---
Date Performed: 11/24/2017 Time Performed: 15:37:06 PTAGE: 72 years EKG: Atrial fibrillation. Inferior infarct - age undetermined Abnormal ECG PREVIOUS TRACING : 06/13/2017 13.09 Possible anterior infarct - age undetermined. Compared to p rior tracing no significant change DOCTOR: Mikel Bridges Interpretating Date/Time 11/25/2017 16:41:33
== END 2017-11-25 15:03 | disposition home or self-care (01) ==
LOC: HCAT 14:58 → HDIC 14:59 → HCIS 21:21 → HCAT 11-25 15:03
PROVIDERS: ATTEND Internal Medicine Interventional Cardiology
DX: I48.91 Unspecified atrial fibrillation (principal); I47.1 Supraventricular tachycardia; R55 Syncope and collapse; I31.3 Pericardial effusion (noninflammatory); I10 Essential (primary) hypertension; Z79.01 Long term (current) use of anticoagulants
CPT/HCPCS: 00537; 80048; 85002; 85025; 85610; 85730; 86850; 86900; 86901; 93005; 93312; 93320; 93325; 93613; 93623; 93656; 93662; C1730; C1731; C1732; C1759; C1766; C2630; J1100; J1644; J1956; J2250; J2370; J2405; J2710; J2720; J3010